=== PATIENT | female | born 1965 | race Caucasian/White ===

== ENCOUNTER 2016-10-31 18:00 | Emergency (ER) | payer SELFPAY ==
[~2016-10-31] VITALS: Ht 180.3 cm; Wt 138.4 kg
[~2016-10-31 18:00] MED LIST: BENZ100 PO; DOXY100T PO
[2016-10-31 18:28] VITALS: BP 152/67; PULSE 93; RESP 18; TEMP 99.4; O2SAT 98
--- NOTE | 2016-10-31 19:27 | RADRPT ---
EXAM DATE/TIME: 10/31/2016 19:08 [facility] COMPARISON: No previous studies available for comparison. INDICATIONS : Right knee pain; fell last night. MEDICAL HISTORY : None. SURGICAL HISTORY : None. ENCOUNTER: Initial ACUITY: 1 day PAIN SCORE: 8/10 LOCATION: Right knee FINDINGS: Mild osteoarthritis is noted involving the patellofemoral and femoral tibial joints. There is a smal l suprapatellar knee joint effusion. There is no acute fracture or dislocation. CONCLUSION: 1. Mild osteoarthritis involving the patellofemoral and femoral tibial joints. 2. Small suprapatellar knee joint effusion. 3. No acute fracture or dislocation. Al Multani MD on October 31, 2016 at 19:22 Board Certified Radiologist. This report was verified electronically.
--- NOTE | 2016-10-31 22:06 | PD ---
HPI Chief Complaint: Injury Time Seen by Provider: 21:52 Travel History International Travel<30 days: No Contact w/Intl Traveler<30days: No Traveled to known affect area: No History of Present Illness HPI Patient comes in complaining of right knee pain that occurred around 2:00 this morning when she went outside during the [place] to close a door. Patient states that she stepped into a hole that she did not seek causing her to twist her right knee. Patient states she's been taking naproxen and elevating with minimal to no relief of her symptoms. Pain is worse with walking. Pain is aching throbbing like in nature anterior surface of her right knee that radiates posteriorly. Patient states she is occasionally feels like it's going to lock up on her. PFSH Past Medical History Cardiovascular Problems: No Diabetes: No Diminished Hearing: No Gastrointestinal Disorders: Yes GERD: Yes Genitourinary: No Musculoskeletal: No Neurologic: No Reproductive: No Respiratory: No Immunizations Current: Yes Migraines: Yes Ulcer: Yes ?: Not LMP: 6 YEARS AGO Menopausal: Yes : 1 Para: 1 Past Surgical History Abdominal Surgery: Yes Cholecystectomy: Yes (1997) Tonsillectomy: Yes Other Surgery: Yes (GALLBLADDER REMOVED) Social History Alcohol Use: No Tobacco Use: Yes (02/23 ppd, STATES QUIT 1 WEEK AGO) Substance Use: Yes Allergies-Medications (Allergen,Severity, Reaction): Coded Allergies: Sulfa (Sulfonamide Antibiotics) (Unverified Allergy, Severe, Anaphylaxis, 10/31/16) diclofenac (Unverified Allergy, Severe, ITCHING, 10/31/16) diflunisal (Unverified Allergy, Severe, ITCHING, 10/31/16) misoprostol (Unverified Allergy, Severe, ITCHING, 10/31/16) penicillin G (Unverified Allergy, Severe, HIVES/ITCHING, 10/31/16) penicillin V (Unverified Allergy, Severe, ITCHING, 10/31/16) propoxyphene (Unverified Allergy, Severe, PURITIS, 10/31/16) sulfamethoxazole (Unverified Allergy, Severe, ITCHING, HIVES, 10/31/16) trimethoprim (Unverified Allergy, Severe, ITCHING, HIVES, 10/31/16) Reported Meds & Prescriptions Reported Meds & Active Scripts Active Reported Levothyroxine (Levothyroxine Sodium) 125 Mcg Tab 125 Mcg PO DAILY Review of Systems Except as stated in HPI: all other systems reviewed are Neg Physical Exam Narrative GENERAL: Well-developed, overly nourished, in no acute distress, and non-ill appearing. SKIN: Focused skin assessment warm and dry. HEAD: Atraumatic. Normocephalic. EYES: Pupils equal and round. EOMI. No scleral icterus. No injection or drainage. ENT: No nasal bleeding or discharge. Mucous membranes pink and moist. NECK: Trachea midline. Supple. No nuclear rigidity. CARDIOVASCULAR: Dorsal pulses 2+, intact, equal bilaterally. Capillary refill less than 2 seconds. RESPIRATORY: No accessory muscle use. No respiratory distress. MUSCULOSKELETAL: No obvious deformities. No clubbing. No cyanosis. No edema. Full range of motion. Knee: Negative patellar apprehension, varus and valgus maneuvers, anterior draw test, and Ovidio test. Pulses equal BL distal to injury. Capillary refill less than 2 seconds distal to injury and equal BL. FROM distal to injury and equal BL. Strength distal to injury equal BL. NV intact distal to injury. Dorsal pulses equal BL. Sensation equal BL 1st web space. Patient worsens palpation over anterior lateral aspect of the right knee. There is no crepitus. NEUROLOGICAL: Awake and alert. No obvious cranial nerve deficits. Motor grossly within normal limits. Normal speech. PSYCHIATRIC: Appropriate mood and affect; insight and judgment normal. Data Data Last Documented VS Vital Signs Date Time Temp Pulse Resp B/P (MAP) Pulse Ox O2 Delivery O2 Flow Rate FiO2 10/31/16 22:10 Room Air 10/31/16 18:28 99.4 93 18 152/67 (95) 98 Orders Orders Knee, Complete (4vws) (10/31/16 ) Splint Or Brace Apply/Monitor (10/31/16 22:00) [facility] Medical Decision Making Medical Screen Exam Complete: Yes Emergency Medical Condition: Yes Interpretation(s) Right knee x-ray read by the radiologist shows: 1. Mild osteoarthritis involving the patellofemoral and femoral tibial joints. 2. Small suprapatellar knee joint effusion. 3. No acute fracture or dislocation. Differential Diagnosis Fracture, sprain, contusion, other Narrative Course There is no clinical evidence to suspect bony injury by exam. Radiographic examination revealed no fracture seen at this time. No obvious ligamental injury or obvious internal derangement is noted at this time. The anterior, posterior, lateral and medial collateral ligaments are intact and symmetrical. The distal extremity appears neurovascularly intact, without evidence of neurovascular injury nor compartment syndrome. Tendon exam also was intact. The effected limb was immobilized. The patient was discharged on pain medication along with sprain and splint care instructions and given warnings for vascular compromise. The patient is to follow up with Orthopedics. The patient agrees with plan. Patient in no obvious distress upon re-evaluation. All pertinent Radiology result(s) discussed with patient. Patient did not want any additional pain medications at this time and she says she has naproxen at home. Any questions/ concerns in reference to patient diagnosis/condition discussed and clarified prior to patient's discharge. Reinforced sheer importance of close follow up with patient's primary physician or primary care clinic and/or orthopedics. Instructed patient to return to ED immediately, if symptoms return/worsen. Pt showed understanding of above instructions. Further instructions and recommendations were detailed in discharge paperwork. Pt ambulated without difficulty out of ED at discharge with knee immobilizer. Diagnosis Primary Impression: Sprain of unspecified site of right knee, initial encounter Referrals: Ty Mendez MD Patient Instructions: Crutch Instructions (ED), General Instructions, Knee Immobilizer (DC), Knee Sprain (DC) Additional Instructions: Follow-up with your primary care physician and/or orthopedics this week for reevaluation. Apply ice to affected area 20 minutes per hour as needed for pain. Use [id number] Tylenol and/or ibuprofen as needed for pain control. Follow instructions on the packaging. Wear knee immobilizer for support and comfort until reevaluated by an orthopedic or primary care physician. Return to the emergency department if symptoms get worse. Disposition: 01 DISCHARGE HOME Condition: Stable Ricki Bahena Oct 31, 2016 22:06
[2016-10-31] MEDS ORDERED: LEVO125T4 PO (22:22)
== END 2016-10-31 22:29 | disposition home or self-care (01) ==
LOC: PHED 18:00 → PHEFT 22:29
DX: S83.91XA Sprain of unspecified site of right knee, initial encounter (principal); X58.XXXA Exposure to other specified factors, initial encounter
CPT/HCPCS: 73564; 99283; E0113; L1830

== ENCOUNTER 2016-12-10 10:57 | Emergency (ER) | payer SELFPAY ==
[~2016-12-10] VITALS: Ht 180.3 cm; Wt 138.0 kg
[~2016-12-10 10:57] MED LIST changes: -BENZ100 PO; -DOXY100T PO; +LEVO125T4 PO
[2016-12-10 10:59] VITALS: BP 158/80; PULSE 89; RESP 16; TEMP 98.5; O2SAT 98
--- NOTE | 2016-12-10 12:06 | PD ---
HPI Chief Complaint: Fall Time Seen by Provider: 12:06 Travel History International Travel<30 days: No Contact w/Intl Traveler<30days: No Traveled to known affect area: No History of Present Illness HPI 51-year-old female presents to ED for evaluation 3 day history of 6/10 mid back pain. Onset after the patient fell while walking home from work. Denies hitting her head or LOC. Described as constant. Worsened by bending over. Occasionally radiating down the left leg. Patient denies numbness, tingling, weakness, limitations to range of motion of the extremities. She denies dysuria , hematuria, vaginal discharge. She treated at home with Aleve with only mild improvement of symptoms. She endorses history of "chronic problems" with her back but no formal diagnoses. Patient does not currently have a primary care provider. PFSH Past Medical History Cardiovascular Problems: No Diabetes: No Diminished Hearing: No Gastrointestinal Disorders: Yes GERD: Yes Genitourinary: No Musculoskeletal: No Neurologic: No Reproductive: No Respiratory: No Immunizations Current: Yes Migraines: Yes Thyroid Disease: Yes Ulcer: Yes Tetanus Vaccination: < 5 Years Influenza Vaccination: No ?: Not Menopausal: Yes : 1 Para: 1 Past Surgical History Abdominal Surgery: Yes Cholecystectomy: Yes (1997) Tonsillectomy: Yes Other Surgery: Yes (GALLBLADDER REMOVED) Social History Alcohol Use: No Tobacco Use: Yes (OCCASIONAL) Substance Use: No Allergies-Medications (Allergen,Severity, Reaction): Coded Allergies: Sulfa (Sulfonamide Antibiotics) (Verified Allergy, Severe, Anaphylaxis, ) diclofenac (Verified Allergy, Severe, ITCHING, 12/10/16) diflunisal (Verified Allergy, Severe, ITCHING, 12/10/16) misoprostol (Verified Allergy, Severe, ITCHING, 12/10/16) penicillin G (Verified Allergy, Severe, HIVES/ITCHING, 12/10/16) penicillin V (Verified Allergy, Severe, ITCHING, 12/10/16) propoxyphene (Verified Allergy, Severe, PURITIS, 12/10/16) sulfamethoxazole (Verified Allergy, Severe, ITCHING, HIVES, 12/10/16) trimethoprim (Verified Allergy, Severe, ITCHING, HIVES, 12/10/16) Reported Meds & Prescriptions Reported Meds & Active Scripts Active Flexeril (Cyclobenzaprine HCl) 10 Mg Tab 10 Mg PO TID Ibuprofen 800 Mg Tab 800 Mg PO Q8H Reported Levothyroxine (Levothyroxine Sodium) 125 Mcg Tab 125 Mcg PO DAILY Review of Systems Except as stated in HPI: all other systems reviewed are Neg Physical Exam Narrative GENERAL: Well-nourished, well-developed pleasant, obese white female in no acute distress. SKIN: Focused skin assessment warm/dry. HEAD: Normocephalic. Atraumatic. EYES: No scleral icterus. No injection or drainage. NECK: Supple, trachea midline. No JVD or lymphadenopathy. CARDIOVASCULAR: Regular rate and rhythm without murmurs, gallops, or rubs. RESPIRATORY: Breath sounds clear and equal bilaterally. No accessory muscle use. GASTROINTESTINAL: Abdomen soft, non-tender, nondistended. No suprapubic tenderness. Active bowel sounds. MUSCULOSKELETAL: No cyanosis, or edema. 2+ DP pulses bilaterally. Straight leg raise positive on the left. 5/5 strength of dorsal flexion, plantar flexion , hip and knee flexion bilaterally. Sensation intact to light touch distally. BACK: Tender in the midthoracic spine and the paraspinal musculature of the same area. No obvious deformity. No CVA tenderness. Data Data Last Documented VS Vital Signs Date Time Temp Pulse Resp B/P (MAP) Pulse Ox O2 Delivery O2 Flow Rate FiO2 12/10/16 13:49 12/10/16 10:59 98.5 89 16 98 Room Air Orders Orders Urinalysis - C+S If Indicated (12/10/16 11:24) Spine, Thoracic-Ap/Lat/Sw(3vw) (12/10/16 12:04) Ketorolac Inj (Toradol Inj) (12/10/16 12:15) Orphenadrine Inj (Norflex Inj) (12/10/16 12:15) Acetamin-Hydrocod 325-5 Mg ([place] 5-325 (12/10/16 12:15) Ed Discharge Order (12/10/16 13:37) Labs Laboratory Tests Test 12/10/16 11:27 Urine Color YELLOW Urine Turbidity CLEAR Urine pH 5.5 Urine Specific [place] 1.033 Urine Protein TRACE mg/dL Urine Glucose (UA) 1000 mg/dL Urine Ketones NEG mg/dL Urine Occult Blood NEG Urine Nitrite NEG Urine Bilirubin NEG Urine Urobilinogen LESS THAN 2.0 MG/DL Urine Leukocyte Esterase TRACE Urine WBC 2 /hpf Urine Squamous Epithelial Cells 1 /hpf Urine Calcium Oxalate Crystals OCC /hpf Urine Hyaline Casts 1 /lpf Urine Mucus FEW /lpf Microscopic Urinalysis Comment CULT NOT INDICATED MDM Medical Decision Making Medical Screen Exam Complete: Yes Emergency Medical Condition: Yes Differential Diagnosis Musculoskeletal pain versus muscle strain versus compression fracture versus UTI versus other Narrative Course 51-year-old female presents to ED for evaluation 3 day history of constant, 6/ 10 mid back pain. Onset after the patient fell while walking home from work. Worsened by bending over. Occasionally radiating down the left leg. Patient denies numbness, tingling, weakness, limited ROM, dysuria, hematuria, vaginal discharge. Vitals reviewed. Physical exam revealed an obese white female in no acute distress. No focal neuro deficits noted. 5/5 strength in the extremities bilaterally. Mild tenderness to the midline of the thoracic spine in the paraspinal musculature of the same area. Patient was administered IM Toradol and Norflex. X-rays of the thoracic spine reveal no acute disease per radiology read. This is musculoskeletal pain secondary to fall. On recheck the patient is sleeping. Patient is prescribed a short course of anti- inflammatories and muscle relaxants. She is encouraged to return to normal, gentle activity as tolerated. She is provided with follow-up information for the [facility]. We discussed reasons to return to the ED. The patient is stable and discharged home. Diagnosis Primary Impression: Musculoskeletal back pain Additional Impression: Fall from standing Qualified Codes: W19.XXXA - Unspecified fall, initial encounter Referrals: [facility] Patient Instructions: Back Pain (ED), General Instructions Additional Instructions: Rest, hydrate. Resume normal, gentle activities as tolerated. No strenuous physical activities for the next few days Anti-inflammatories and muscle relaxants as prescribed. Do not drive while taking multiple relaxants as they may cause drowsiness. Applying ice or heat to areas with sore muscles may help to improve your pains. Do not apply ice/ heat for longer than 20 m/h. Follow-up with the [facility] to establish primary care as discussed. Return to the ED for any urgent or emergent medical condition. Med/Other Pt SpecificInfo: Prescription(s) given Scripts Cyclobenzaprine (Flexeril) 10 Mg Tab 10 MG PO TID for Muscle Spasm, #15 TAB 0 Refills Prov: Vickie Abbott DO 12/10/16 Ibuprofen (Ibuprofen) 800 Mg Tab 800 MG PO Q8H, #15 TAB 0 Refills Prov: Vickie Abbott DO 12/10/16 Disposition: 01 DISCHARGE HOME Condition: Stable Meghan Wilson Dec 10, 2016 12:06
[2016-12-10] MEDS ORDERED: KETOROLAC TROMETHAMINE 60 MG/2 ML (IM) VIAL IM ONE (12:15)
[2016-12-10] MEDS ORDERED: ORPHENADRINE INJ 60 MG/2 ML AMP IM ONE (12:15)
[2016-12-10] MEDS ORDERED: ACETAMINOPHEN/HYDROcodone 325 MG/5 MG TAB PO ONE (12:15)
[2016-12-10 12:17] LABS: BILIRUBIN, URINE NEG (NEG); BLOOD, URINE NEG (NEG); CALCIUM OXALATE CRYSTALS,URINE OCC /hpf; GLUCOSE,URINE 1000 mg/dL (NEG); HYALINE CAST, URINE 1 /lpf (RARE); KETONE, URINE NEG (NEG); MUCUS URINE FEW /lpf (OCC); NITRITE,URINE NEG (NEG); PH, URINE 5.5 (5.0-8.5); SQUAMOUS EPITHELIAL CELL URINE 1 /hpf (0-5); URINE COLOR YELLOW (YELLW/STRAW); URINE LEUKOCYTE ESTERASE TRACE (NEG)
--- NOTE | 2016-12-10 13:31 | RADRPT ---
EXAM DATE/TIME: 12/10/2016 12:26 [facility] COMPARISON: No previous studies available for comparison. INDICATIONS : Fell last nite on left side, severe mid thoracic spine pain. MEDICAL HISTORY : None. SURGICAL HISTORY : None. ENCOUNTER: Initial ACUITY: 2 days PAIN SCORE: 9/10 LOCATION: Thoracic spine FINDINGS: There is normal alignment of the thoracic vertebral bodies. Vertebral body height is maintained. Sp urs are seen in the thoracic spine. No evidence of fracture or subluxation. Pedicles are intact at a ll levels. The paravertebral reflections are not thickened. CONCLUSION: No acute disease. Harley Bates MD on December 10, 2016 at 13:29 Board Certified Radiologist. This report was verified electronically.
[2016-12-10] MEDS ORDERED: IBUP800T23 PO (13:36)
[2016-12-10] MEDS ORDERED: CYCL1TAB29 PO (13:36)
== END 2016-12-10 13:58 | disposition home or self-care (01) ==
LOC: NEPD 10:57
DX: M54.6 Pain in thoracic spine (principal); W19.XXXA Unspecified fall, initial encounter; Y93.01 Activity, walking, marching and hiking
CPT/HCPCS: 72072; 81001; 96372; 99284; J1885; J2360

== ENCOUNTER 2017-01-05 12:12 | Emergency (ER) | payer SELFPAY ==
[~2017-01-05] VITALS: Ht 180.3 cm; Wt 140.5 kg
[~2017-01-05 12:12] MED LIST changes: +CYCL10TA PO; +IBUP1TAB7 PO
[2017-01-05 12:13] VITALS: BP 178/110; PULSE 95; RESP 20; TEMP 98.5; O2SAT 99
--- NOTE | 2017-01-05 12:56 | PD ---
HPI . Patient presents with depression. Chief Complaint: Psychiatric Symptoms Time Seen by Provider: 12:46 Travel History International Travel<30 days: No Contact w/Intl Traveler<30days: No Traveled to known affect area: No History of Present Illness HPI I was not able to get much history from this patient. She presents stating that she just can't take it anymore. PFSH Past Medical History Cardiovascular Problems: No Diabetes: No Diminished Hearing: No Gastrointestinal Disorders: Yes GERD: Yes Genitourinary: No Musculoskeletal: No Neurologic: No Reproductive: No Respiratory: No Immunizations Current: Yes Migraines: Yes Thyroid Disease: Yes Ulcer: Yes Tetanus Vaccination: < 5 Years Influenza Vaccination: No ?: Not Menopausal: Yes : 1 Para: 1 Past Surgical History Abdominal Surgery: Yes Cholecystectomy: Yes (1997) Tonsillectomy: Yes Other Surgery: Yes (GALLBLADDER REMOVED) Social History Alcohol Use: No Tobacco Use: Yes (OCCASIONAL) Substance Use: No Allergies-Medications (Allergen,Severity, Reaction): Coded Allergies: Sulfa (Sulfonamide Antibiotics) (Verified Allergy, Severe, Anaphylaxis, ) diclofenac (Verified Allergy, Severe, ITCHING, 01/05/17) diflunisal (Verified Allergy, Severe, ITCHING, 01/05/17) misoprostol (Verified Allergy, Severe, ITCHING, 01/05/17) penicillin G (Verified Allergy, Severe, HIVES/ITCHING, 01/05/17) penicillin V (Verified Allergy, Severe, ITCHING, 01/05/17) propoxyphene (Verified Allergy, Severe, PURITIS, 01/05/17) sulfamethoxazole (Verified Allergy, Severe, ITCHING, HIVES, 01/05/17) trimethoprim (Verified Allergy, Severe, ITCHING, HIVES, 01/05/17) Reported Meds & Prescriptions Reported Meds & Active Scripts Active No Active Prescriptions or Reported Medications Review of Systems Except as stated in HPI: all other systems reviewed are Neg Psychiatric: Positive: Depression Physical Exam Narrative GENERAL: Patient is tearful. Poor eye contact. SKIN: Warm and dry with no rash or lesions. HEAD: Normocephalic/atraumatic. EYES: Pupils are equal. Extraocular movements are intact. NECK: Supple. CARDIOVASCULAR: Regular rate and rhythm. RESPIRATORY: Nonlabored respirations. MUSCULOSKELETAL: Atraumatic. NEUROLOGICAL: Nonfocal. PSYCHIATRIC: Appropriate mood and affect. Data Data Last Documented VS Vital Signs Date Time Temp Pulse Resp B/P (MAP) Pulse Ox O2 Delivery O2 Flow Rate FiO2 01/05/17 12:13 98.5 95 20 178/110 (132) 99 Room Air Orders Orders Complete Blood Count With Diff (01/05/17 12:46) Comprehensive Metabolic Panel (01/05/17 12:46) Psych Screen (01/05/17 12:46) Drug Screen, Random Urine (01/05/17 12:46) Alcohol (Ethanol) (01/05/17 12:46) MDM Medical Decision Making Medical Screen Exam Complete: Yes Emergency Medical Condition: Yes Differential Diagnosis Differential diagnosis of depression includes but is not limited to episodic depression, major depression, bipolar disorder, PTSD Narrative Course This patient presents for depression. I was not really able to get much history from her. We will get a psych screening exam. Diagnosis Primary Impression: Depression Qualified Codes: F32.9 - Major depressive disorder, single episode, unspecified Scripts No Active Prescriptions or Reported Meds Condition: Princess Langston MD Jan 05, 2017 12:56
[2017-01-05 13:37] LABS: AUTOMATED NEUTROPHIL # 5.3 TH/MM3 (1.8-7.7); BASOPHIL # 0.1 TH/MM3 (0-0.2); BASOPHIL % 0.9 % (0.0-2.0); EOSINOPHIL # 0.3 TH/MM3 (0-0.4); EOSINOPHIL % 3.9 % (0.0-4.0); HEMATOCRIT 42.8 % (35.0-46.0); HEMO FLAGS DIFF FINAL; LYMPH % 19.3 % (9.0-44.0); LYMPHOCYTE # 1.4 TH/MM3 (1.0-4.8); MEAN CELL VOLUME 84.8 FL (80.0-100.0); MEAN CORPUSCULAR HEMOGLOBIN 27.7 PG (27.0-34.0); MEAN CORPUSCULAR HGB CONC 32.7 % (32.0-36.0); MONO % 5.6 % (0.0-8.0); NEUT % 70.3 % (16.0-70.0); PLATELET COUNT 188 TH/MM3 (150-450); RED BLOOD COUNT 5.04 MIL/MM3 (4.00-5.30); RED CELL DISTRIBUTION WIDTH 14.8 % (11.6-17.2); WHITE BLOOD COUNT 7.5 TH/MM3 (4.0-11.0)
[2017-01-05 13:52] LABS: ANION GAP 6 MEQ/L (5-15); AST (GOT) 37 U/L (15-37); BICARBONATE 29.5 MEQ/L (21.0-32.0); BLOOD UREA NITROGEN 8 MG/DL (7-18); CHLORIDE 101 MEQ/L (98-107); GLOMERULAR FILTRATION RATE 71 ML/MIN (>89); POTASSIUM 4.2 MEQ/L (3.5-5.1); SODIUM (NA) 136 MEQ/L (136-145)
[2017-01-05 13:53] LABS: ALCOHOL LESS THAN 3 MG/DL (0-5)
[2017-01-05 13:55] LABS: ALKALINE PHOSPHATASE 100 U/L (45-117); ALT (GPT) 50 U/L (10-53); TOTAL BILIRUBIN ADULT 0.6 MG/DL (0.2-1.0)
[2017-01-05 18:00] VITALS: BP 124/73; PULSE 88; RESP 18; TEMP 98.8; O2SAT 98
[2017-01-06 02:17] VITALS: BP 124/72; PULSE 72; RESP 16; O2SAT 98
[2017-01-06 06:23] VITALS: BP 119/75; PULSE 74; RESP 18; TEMP 98.7; O2SAT 98
[2017-01-06 11:12] VITALS: BP 111/71; PULSE 74; RESP 18; TEMP 97.7; O2SAT 98
--- NOTE | 2017-01-06 13:57 | PD ---
History of Present Illness Chief Complaint: Psychiatric Symptoms Time Seen by Provider: 13:30 Travel History International Travel<30 Days: No Contact w/Intl Traveler<30days: No Known affected area: No Legal Status Legal Status: Brito Act Brito Act Signed By: DOMONIQUE Kennedy History of Present Illness: History of Present Illness HPI 51-year-old female with history of depression comes in to the ED initially on a voluntary basis requesting evaluation she states that she has nothing to live for and that if given the chance she will hurt herself. She goes on to state that 2 nights ago she slept with a knife underneath her pillow and that the previous night she slept that the bottle of Benadryl next to her but she did not actually cut herself or ingest the pills. She denies that she has any current stressors in her life stating that she is working that she has a place to live and she doesn't understand why she feels the way she feels. The patient is initially requested to be admitted to the hospital but then becomes angry and begins to demand that she be discharge. While demanding to be discharged she threatens this staff member that if she is discharged she will harm herself. The patient was placed under Brito act as she is unreliable. Electronic medical record is reviewed the patient has an admission in 2010 after an overdose. She has another brief admission in 2013 for suicidality. In terms of psychiatric treatment he states that she last took medications in 2013. That she has been to [facility] numerous time but has not followed through. Patient is seen in [facility]. She is alert and oriented female. Mood is dysphoric. She gets angry very quickly. She denies any hallucinations, delusions, or paranoia. Patient continues to threaten suicidal intent. In terms of substance abuse she denies any use of any substances and her toxicology is negative. PFSH Past Medical History Cardiovascular Problems: No Diabetes: No Diminished Hearing: No Gastrointestinal Disorders: Yes GERD: Yes Genitourinary: No Musculoskeletal: No Neurologic: No Reproductive: No Respiratory: No Immunizations Current: Yes Migraines: Yes Thyroid Disease: Yes Ulcer: Yes Tetanus Vaccination: < 5 Years Influenza Vaccination: No ?: Not Menopausal: Yes : 1 Para: 1 Past Surgical History Abdominal Surgery: Yes Cholecystectomy: Yes (1997) Tonsillectomy: Yes Other Surgery: Yes (GALLBLADDER REMOVED) Psychiatric History Psychiatric History Hx Psychiatric Treatment: Diagnosed with depression in 2006. Voices that Prozac is the only med she recalls helping her with her depression, but she didn't stay on it due to inability to afford doctor's visits. History of Inpatient Treatment: Yes ([facility] 2010 and 2013. Multiple visits to [facility]) Social History Single female originally from [place]. Never . No children. 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 Lives with a roommate and she reports that this is a stable limit living situation. She reports that both her mother her father and her only sister have all . Hx Alcohol Use: No Hx Tobacco Use: Yes (OCCASIONAL) Hx Substance Use: Yes (2 cigarettes/day) Substance Use Type: Nicotine/Cigarettes Other Substances Used: 02/23 PPD-COCAINE Hx of Substance Use Treatment: No Family Psychiatric History Negative Allergies-Medications (Allergen,Severity, Reaction): Coded Allergies: Sulfa (Sulfonamide Antibiotics) (Verified Allergy, Severe, Anaphylaxis, ) diclofenac (Verified Allergy, Severe, ITCHING, 01/05/17) diflunisal (Verified Allergy, Severe, ITCHING, 01/05/17) misoprostol (Verified Allergy, Severe, ITCHING, 01/05/17) penicillin G (Verified Allergy, Severe, HIVES/ITCHING, 01/05/17) penicillin V (Verified Allergy, Severe, ITCHING, 01/05/17) propoxyphene (Verified Allergy, Severe, PURITIS, 01/05/17) sulfamethoxazole (Verified Allergy, Severe, ITCHING, HIVES, 01/05/17) trimethoprim (Verified Allergy, Severe, ITCHING, HIVES, 01/05/17) Reported Meds & Prescriptions Reported Meds & Active Scripts Active No Active Prescriptions or Reported Medications Review of Systems Except as stated in HPI: all other systems reviewed are Neg Mental Status Examination Appearance: Appropriate Consciousness: Alert Orientation: x4 Motor Activity: Normal gait Speech: Unremarkable Language: Adequate Fund of Knowledge: Adequate Attention and Concentration: Adequate Memory: Unremarkable Mood: Angry, Oppositional Affect: Appropriate, Irritable Thought Process & Associations: Intact Thought Content: Appropriate Hallucination Type: None Delusion Type: None Suicidal Ideation: Yes Suicidal Plan: Yes Suicidal Intention: No Homicidal Ideation: No Homicidal Plan: No Homicidal Intention: No Insight: Poor Judgment: Impulsive MDM Medical Decision Making Medical Record Reviewed: Yes Assessment/Plan 51-year-old female with history of depression currently not in treatment who presents on a voluntary basis reporting suicidality. She is placed under a Brito act after she demands to be discharge. Patient threatening to harm herself when she is discharged and at the same time demanding to be released from [facility]. Placed under Brito act. Patient to be placed on [facility] list for disposition.. Place Orders Orders Diet Regular Basic (01/05/17 Dinner) Diet Regular Basic (01/06/17 Breakfast) Results Vital Signs Date Time Temp Pulse Resp B/P (MAP) Pulse Ox O2 Delivery O2 Flow Rate FiO2 01/06/17 11:12 97.7 74 18 111/71 (84) 98 Room Air 01/06/17 06:23 98.7 74 18 119/75 (90) 98 01/06/17 02:17 72 16 124/72 (89) 98 Room Air 01/05/17 18:00 98.8 88 18 124/73 (90) 98 Room Air Diagnosis Primary Impression: Depression Prescriptions No Active Prescriptions or Reported Meds Condition: Stable Problem Qualifiers Primary Impression: Depression Qualified Codes: F32.9 - Major depressive disorder, single episode, unspecified Olamide Renteria Jan 06, 2017 13:57
[2017-01-06 17:32] VITALS: BP 106/56; PULSE 81; RESP 18; TEMP 97.2; O2SAT 100
== END 2017-01-07 01:19 ==
LOC: NEPJ 12:12
DX: F32.9 Major depressive disorder, single episode, unspecified (principal); K21.9 Gastro-esophageal reflux disease without esophagitis; E07.9 Disorder of thyroid, unspecified; F17.210 Nicotine dependence, cigarettes, uncomplicated; Z88.2 Allergy status to sulfonamides; Z88.0 Allergy status to penicillin; Z88.8 Allergy status to other drugs, medicaments and biological substances
CPT/HCPCS: 80053; 80307; 85025; 99283

== ENCOUNTER 2017-07-07 00:20 | Emergency (ER) | payer SELFPAY ==
[2017-07-07 00:40] VITALS: BP 126/85; PULSE 89; RESP 18; TEMP 98.1; O2SAT 98
[2017-07-07] MEDS ORDERED: IBUPROFEN 600 MG TAB PO ONE (01:45)
--- NOTE | 2017-07-07 01:45 | PD ---
HPI Chief Complaint: Injury Time Seen by Provider: 01:15 Travel History International Travel<30 days: No Contact w/Intl Traveler<30days: No Traveled to known affect area: No History of Present Illness HPI 52-year-old female complains of right hip and right thigh pain. Patient states that she slipped and fell this evening. Patient denies loss of consciousness. Patient states that she was trying to get up and hit the back of her head against an object. Patient complained of some burning pain in the back of her head. Patient denies any visual change. Patient denies any neck pain. Patient denies any chest pain or shortness of breath. Patient denies abdominal pain. Patient denies any focal weakness or numbness of the extremity. PFSH Past Medical History Cardiovascular Problems: No Diabetes: No Diminished Hearing: No Gastrointestinal Disorders: Yes GERD: Yes Genitourinary: No Musculoskeletal: No Neurologic: No Reproductive: No Respiratory: No Immunizations Current: Yes Migraines: Yes Thyroid Disease: Yes Ulcer: Yes Influenza Vaccination: No ?: Not Menopausal: Yes : 1 Para: 1 Past Surgical History Abdominal Surgery: Yes Cholecystectomy: Yes (1997) Tonsillectomy: Yes Other Surgery: Yes (GALLBLADDER REMOVED) Social History Alcohol Use: No Tobacco Use: Yes (OCCASIONAL) Substance Use: No Allergies-Medications (Allergen,Severity, Reaction): Coded Allergies: Sulfa (Sulfonamide Antibiotics) (Verified Allergy, Severe, Anaphylaxis, ) diclofenac (Verified Allergy, Severe, ITCHING, 07/07/17) diflunisal (Verified Allergy, Severe, ITCHING, 07/07/17) misoprostol (Verified Allergy, Severe, ITCHING, 07/07/17) penicillin G (Verified Allergy, Severe, HIVES/ITCHING, 07/07/17) penicillin V (Verified Allergy, Severe, ITCHING, 07/07/17) propoxyphene (Verified Allergy, Severe, PURITIS, 07/07/17) sulfamethoxazole (Verified Allergy, Severe, ITCHING, HIVES, 07/07/17) trimethoprim (Verified Allergy, Severe, ITCHING, HIVES, 07/07/17) Reported Meds & Prescriptions Reported Meds & Active Scripts Active No Active Prescriptions or Reported Medications Review of Systems General / Constitutional: No: Fever Eyes: No: Visual changes HENT: No: Headaches Cardiovascular: No: Chest Pain or Discomfort Respiratory: No: Shortness of Breath Gastrointestinal: No: Abdominal Pain Genitourinary: No: Dysuria Musculoskeletal: Positive: Pain Skin: No Rash Neurologic: No: Weakness Psychiatric: No: Depression Endocrine: No: Polydipsia Hematologic/Lymphatic: No: Easy Bruising Physical Exam Narrative GENERAL: Well-nourished, well-developed patient. SKIN: Focused skin assessment warm/dry. HEAD: Normocephalic. Mild tenderness in palpation occipital area of the scalp. No laceration or abrasion noted. No active bleeding. EYES: No scleral icterus. No injection or drainage. Pupils 2 mm equal reactive. NECK: Supple, trachea midline. No JVD or lymphadenopathy. No neck tenderness on palpation. CARDIOVASCULAR: Regular rate and rhythm without murmurs, gallops, or rubs. RESPIRATORY: Breath sounds equal bilaterally. No accessory muscle use. GASTROINTESTINAL: Abdomen soft, non-tender, nondistended. MUSCULOSKELETAL: No cyanosis, or edema. Patient has moderate tenderness in palpation lateral aspect of the right hip joint. Full range of motion the right hip. Patient had mild tenderness palpation proximal right femur. BACK: Nontender without obvious deformity. No CVA tenderness. Data Data Last Documented VS Vital Signs Date Time Temp Pulse Resp B/P (MAP) Pulse Ox O2 Delivery O2 Flow Rate FiO2 07/07/17 00:40 98.1 89 18 126/85 (99) 98 Orders Orders Ibuprofen (Motrin) (07/07/17 01:45) Hip, Uni(Ap&Lat) W Ap Pelvis (07/07/17 01:38) MDM Medical Decision Making Medical Screen Exam Complete: Yes Emergency Medical Condition: Yes Interpretation(s) Last Impressions Hip and Pelvis X-Ray 07/07/17 0138 Signed Impressions: Service Date/Time: Friday, July 07, 2017 01:56 - CONCLUSION: Unremarkable examination of the right hip. Go Renteria Jr., MD Differential Diagnosis Differential diagnoses including contusion, fracture, dislocation. Narrative Course 52-year-old female with right hip and right thigh pain. Status post fall. Patient also injured the back of the head. Neuro exam benign. No need for CT scan of the brain today. Diagnosis Primary Impression: Contusion of right hip Qualified Codes: S70.01XA - Contusion of right hip, initial encounter Additional Impression: Closed head injury Qualified Codes: S09.90XA - Unspecified injury of head, initial encounter Patient Instructions: General Instructions Additional Instructions: Head trauma instructions given. Motrin as needed for pain. Ice pack. Follow- up with orthopedist if persistent problem. Med/Other Pt SpecificInfo: Prescription(s) given Scripts Methocarbamol (Robaxin) 750 Mg Tab 750 MG PO QID for Muscle Spasm, #40 TAB 0 Refills Prov: Olegario Subramanian MD 07/07/17 Ibuprofen (Ibuprofen) 600 Mg Tab 600 MG PO TID for Pain, #30 TAB 0 Refills Prov: Olegario Subramanian MD 07/07/17 Disposition: DISCHARGE HOME Condition: Stable Olegario Subramanian MD July 07, 2017 01:44
--- NOTE | 2017-07-07 02:14 | RADRPT ---
EXAM DATE/TIME: 07/07/2017 01:56 [place] COMPARISON: No previous studies available for comparison. INDICATIONS : Pain due to fall. MEDICAL HISTORY : None. SURGICAL HISTORY : None. ENCOUNTER: Initial ACUITY: 1 day PAIN SCORE: 8/10 LOCATION: Right pelvis, hip FINDINGS: Examination of the right hip was performed with AP Pelvis. The primary and secondary trabecular mariah teodoro of the femoral neck is intact. The hip joint is of normal width without significant sclerosis or bony hypertrophy. The acetabulum is grossly intact. CONCLUSION: Unremarkable examination of the right hip. Go Renteria Jr., MD on July 07, 2017 at 2:12 Board Certified Radiologist. This report was verified electronically.
[2017-07-07] MEDS ORDERED: ROBA750T PO (02:33)
[2017-07-07] MEDS ORDERED: IBUP-232 PO (02:33)
== END 2017-07-07 03:16 | disposition home or self-care (01) ==
LOC: NEPC 00:20
DX: S70.01XA Contusion of right hip, initial encounter (principal); S09.90XA Unspecified injury of head, initial encounter; W01.0XXA Fall on same level from slipping, tripping and stumbling without subsequent striking against object, initial encounter
CPT/HCPCS: 73502; 99283

== ENCOUNTER 2018-04-05 22:20 | Inpatient (IN) ==
[2018-04-05] MEDS ORDERED: Morphine Inj 4 MG/ML Vial IV.PUSH ONE (23:36)
[2018-04-05] MEDS ORDERED: Vancomycin Inj 1,000 MG in Sodium Chlor 0.9% Inj 250 ML IV.SIG ONE (23:36)
[2018-04-05] MEDS ORDERED: Diphtheria/Tetanus/Pertussis Vaccine Inj 0.5 ML Syringe IM ONE (23:41)
--- NOTE | 2018-04-05 23:41 | ED ---
HPI General Chief complaint: Skin/Abscess/Foreign Body Stated complaint: poss bite/hand swelling Time Seen by Provider: 04/05/18 23:28 Source: patient and RN notes reviewed Mode of arrival: ambulatory History of Present Illness HPI narrative: 53yF presenting with left hand/ arm swelling. The patient states that she was working in her yard yesterday and thinks she was bitten by a bug. She noticed a small area of swelling and itching to the dorsum of her left hand and tried to "pop" it last night. Today, she noticed significant swelling to her entire left hand which has since started to travel up her arm. She admits to tactile fevers and chills. No history of MRSA or IVDA. Does not recall when her last tetanus shot was. Right hand dominant, employed as a rn hedis. Related Data Home Medications Medication Instructions Recorded Confirmed metformin 500 mg PO BID 04/05/18 04/05/18 Allergies Allergy/AdvReac Type Severity Reaction Status Date / Time diclofenac Allergy Severe ITCHING Verified 04/05/18 22:46 diflunisal Allergy Severe ITCHING Verified 04/05/18 22:46 misoprostol Allergy Severe ITCHING Verified 04/05/18 22:46 penicillin G Allergy Severe HIVES/ITCHI Verified 04/05/18 22:46 NG penicillin V Allergy Severe ITCHING Verified 04/05/18 22:46 propoxyphene Allergy Severe PURITIS Verified 04/05/18 22:46 Sulfa (Sulfonamide Allergy Severe Anaphylaxis Verified 04/05/18 22:46 Antibiotics) sulfamethoxazole Allergy Severe ITCHING, Verified 04/05/18 22:46 HIVES trimethoprim Allergy Severe ITCHING, Verified 04/05/18 22:46 HIVES Review of Systems ROS: all other systems reviewed are negative [facility] Medical History Medical History Pre-diabetes (Acute) Surgical History Surgical History History of cholecystectomy (Acute) Hx of tonsillectomy (Acute) Social History Social History Substance History: No History of Abuse Second Hand Smoke Exposure: No Smoking Status: Current every day smoker Tobacco Type: Cigarettes How Often Do You Have a Drink Containing Alcohol: Never Recent Travel in [facility] within the Last 8 Weeks: No Recent Out of Country Travel within the Last 8 Weeks: No Immunization History Tetanus Immunization: >5 Years Exam Const Other: Appears uncomfortable HENMT Face and sinus: normal facial exam Eyes General: appearance normal, both eyes and all related structures Resp Effort & Inspection: normal respiratory effort Auscultation: no rhonchi and no wheezes Cardio Rate: tachycardic Rhythm: regular rhythm GI Inspection: non-distended Palpation: soft and nontender Skin Other: Significant swelling, erythema, warmth, and tenderness to entire left hand and distal lower arm with lymphangitic streaking. Central area of fluctuance to dorsum of left hand. Pain on passive extension of digits Neurovascularly intact No crepitus Neuro General: alert and awake Procedures Abscess I/D Abscess 1: Site: upper extremity Side (if applicable): left Anesthetic used: lidocaine 1% and with epi Technique: incised with #11 blade Irrigation: Yes Packing used?: none Complications: pain Course Initial Documented Vital Signs Temperature 100.4 F H 04/05/18 22:46 Pulse Rate 108 H 04/05/18 22:46 Respiratory Rate 18 04/05/18 22:46 Blood Pressure 128/60 04/05/18 22:46 Last Documented Vital Signs Temperature 98.5 F 04/06/18 22:45 Pulse Rate 80 04/06/18 22:45 Respiratory Rate 16 04/06/18 22:45 Blood Pressure 118/71 04/06/18 22:30 Pulse Oximetry 95 04/06/18 22:45 Medical Decision Making [facility] Narrative Medical decision making narrative: Assessment: 53yF presenting with left hand/ arm cellulitis/ abscess Plan: Sepsis workup Pain control X-ray left hand Antibiotics Patient will likely need obs vs admission and hand surgery consult d/w Dr Loomis at 1211AM and patient assessed shortly thereafter. hand abscess with cellulitic change extending to middle forearm. vanco started. SIRS criteria met upon arrival. sepsis workup initiated. there is concern for tendon sheath involvement. Incision/drainage at bedside yielded moderate quantity of purulent discharge. d/w Dr Tafoya for [facility] at 132AM. Medical Screen Exam Complete: Yes Emergency Medical Condition: Yes Differential Diagnosis Differential Diagnosis: Differential diagnosis includes, but is not limited to: cellulitis/ abscess, SIRS, sepsis Lab Data Result diagrams: 04/05/18 23:54 04/05/18 23:54 Lab Results 04/05/18 04/05/18 04/05/18 Range/Units 23:54 23:54 23:54 WBC 9.7 (4.0-11.0) th/mm3 RBC 4.29 (4.00-5.30) mil/mm3 Hgb 12.0 (11.6-15.3) gm/dL Hct 36.5 (35.0-46.0) % MCV 85.1 (80.0-100.0) fL MCH 27.9 (27.0-34.0) pg MCHC 32.8 (32.0-36.0) % RDW 15.9 (11.6-17.2) % Plt Count 204 (150-450) th/mm3 MPV 9.7 (7.0-11.0) fL Neut % (Auto) 79.8 H (16.0-70.0) % Lymph % (Auto) 9.4 (9.0-44.0) % Lamar % (Auto) 9.0 H (0.0-8.0) % Eos % (Auto) 1.1 (0.0-4.0) % Baso % (Auto) 0.7 (0.0-2.0) % Neut # (Auto) 7.7 (1.8-7.7) th/mm3 Lymph # (Auto) 0.9 L (1.0-4.8) th/mm3 Lamar # (Auto) 0.9 (0.0-0.9) th/mm3 Eos # (Auto) 0.1 (0.0-0.4) th/mm3 Baso # (Auto) 0.1 (0.0-0.2) th/mm3 WBC Differential . Differential Comment Auto diff final Sodium 135 L (136-145) meq/L Potassium 4.1 (3.5-5.1) meq/L Chloride 101 (98-107) meq/L Carbon Dioxide 26.7 (21.0-32.0) meq/L Anion Gap 7 (5-15) meq/L BUN 18 (7-18) mg/dL Creatinine 0.95 (0.50-1.00) mg/dL Estimated GFR 62 L (>89) mL/min POC Glucose (68-110) mg/dl Random Glucose 329 H (74-106) mg/dL Lactic Acid 1.9 (0.4-2.0) mmol/L Calcium 8.7 (8.5-10.1) mg/dL Magnesium 1.9 (1.5-2.5) mg/dL Total Bilirubin 0.7 (0.2-1.0) mg/dL AST 26 (15-37) U/L ALT 40 (10-53) U/L Alkaline Phosphatase 108 (45-117) U/L Total Protein 8.2 (6.4-8.2) g/dL Albumin 3.9 (3.4-5.0) g/dL Urine Color (Yellw/Straw) Urine Clarity (Clear) Urine pH (5.0-8.5) Ur Specific [place] (1.002-1.035) Urine Protein (Neg-Trace) mg/dL Urine Glucose (UA) (Negative) mg/dL Urine Ketones (Negative) mg/dL Urine Occult Blood (Negative) Urine Nitrate (Negative) Urine Bilirubin (Negative) Urine Urobilinogen (Less than 2) mg/dL Ur Leukocyte Esterase (Negative) Urine RBC (0-3) /hpf Urine WBC (0-5) /hpf Ur Squamous Epith Cells (0-5) /hpf Urine Bacteria (None) /hpf Urine Mucus (Occasional) /lpf Micro UA Comment Ur Microscopic Review Urine Culture Comments 04/06/18 04/06/18 04/06/18 Range/Units 03:26 07:40 08:30 WBC (4.0-11.0) th/mm3 RBC (4.00-5.30) mil/mm3 Hgb (11.6-15.3) gm/dL Hct (35.0-46.0) % MCV (80.0-100.0) fL MCH (27.0-34.0) pg MCHC (32.0-36.0) % RDW (11.6-17.2) % Plt Count (150-450) th/mm3 MPV (7.0-11.0) fL Neut % (Auto) (16.0-70.0) % Lymph % (Auto) (9.0-44.0) % Lamar % (Auto) (0.0-8.0) % Eos % (Auto) (0.0-4.0) % Baso % (Auto) (0.0-2.0) % Neut # (Auto) (1.8-7.7) th/mm3 Lymph # (Auto) (1.0-4.8) th/mm3 Lamar # (Auto) (0.0-0.9) th/mm3 Eos # (Auto) (0.0-0.4) th/mm3 Baso # (Auto) (0.0-0.2) th/mm3 WBC Differential Differential Comment Sodium (136-145) meq/L Potassium (3.5-5.1) meq/L Chloride (98-107) meq/L Carbon Dioxide (21.0-32.0) meq/L Anion Gap (5-15) meq/L BUN (7-18) mg/dL Creatinine (0.50-1.00) mg/dL Estimated GFR (>89) mL/min POC Glucose 289 H 295 H (68-110) mg/dl Random Glucose (74-106) mg/dL Lactic Acid (0.4-2.0) mmol/L Calcium (8.5-10.1) mg/dL Magnesium (1.5-2.5) mg/dL Total Bilirubin (0.2-1.0) mg/dL AST (15-37) U/L ALT (10-53) U/L Alkaline Phosphatase (45-117) U/L Total Protein (6.4-8.2) g/dL Albumin (3.4-5.0) g/dL Urine Color Yellow (Yellw/Straw) Urine Clarity Hazy H (Clear) Urine pH 5.0 (5.0-8.5) Ur Specific [place] 1.023 (1.002-1.035) Urine Protein Negative (Neg-Trace) mg/dL Urine Glucose (UA) 500 or greater (Negative) mg/dL Urine Ketones Trace H (Negative) mg/dL Urine Occult Blood Small H (Negative) Urine Nitrate Negative (Negative) Urine Bilirubin Negative (Negative) Urine Urobilinogen Less than 2 (Less than 2) mg/dL Ur Leukocyte Esterase Small H (Negative) Urine RBC 3 (0-3) /hpf Urine WBC 18 H (0-5) /hpf Ur Squamous Epith Cells 2 (0-5) /hpf Urine Bacteria Few H (None) /hpf Urine Mucus Few H (Occasional) /lpf Micro UA Comment Culture indicated Ur Microscopic Review Not Reportable Urine Culture Comments Culture indicated 04/06/18 04/06/18 Range/Units 12:13 16:57 WBC (4.0-11.0) th/mm3 RBC (4.00-5.30) mil/mm3 Hgb (11.6-15.3) gm/dL Hct (35.0-46.0) % MCV (80.0-100.0) fL MCH (27.0-34.0) pg MCHC (32.0-36.0) % RDW (11.6-17.2) % Plt Count (150-450) th/mm3 MPV (7.0-11.0) fL Neut % (Auto) (16.0-70.0) % Lymph % (Auto) (9.0-44.0) % Lamar % (Auto) (0.0-8.0) % Eos % (Auto) (0.0-4.0) % Baso % (Auto) (0.0-2.0) % Neut # (Auto) (1.8-7.7) th/mm3 Lymph # (Auto) (1.0-4.8) th/mm3 Lamar # (Auto) (0.0-0.9) th/mm3 Eos # (Auto) (0.0-0.4) th/mm3 Baso # (Auto) (0.0-0.2) th/mm3 WBC Differential Differential Comment Sodium (136-145) meq/L Potassium (3.5-5.1) meq/L Chloride (98-107) meq/L Carbon Dioxide (21.0-32.0) meq/L Anion Gap (5-15) meq/L BUN (7-18) mg/dL Creatinine (0.50-1.00) mg/dL Estimated GFR (>89) mL/min POC Glucose 264 H 210 H (68-110) mg/dl Random Glucose (74-106) mg/dL Lactic Acid (0.4-2.0) mmol/L Calcium (8.5-10.1) mg/dL Magnesium (1.5-2.5) mg/dL Total Bilirubin (0.2-1.0) mg/dL AST (15-37) U/L ALT (10-53) U/L Alkaline Phosphatase (45-117) U/L Total Protein (6.4-8.2) g/dL Albumin (3.4-5.0) g/dL Urine Color (Yellw/Straw) Urine Clarity (Clear) Urine pH (5.0-8.5) Ur Specific [place] (1.002-1.035) Urine Protein (Neg-Trace) mg/dL Urine Glucose (UA) (Negative) mg/dL Urine Ketones (Negative) mg/dL Urine Occult Blood (Negative) Urine Nitrate (Negative) Urine Bilirubin (Negative) Urine Urobilinogen (Less than 2) mg/dL Ur Leukocyte Esterase (Negative) Urine RBC (0-3) /hpf Urine WBC (0-5) /hpf Ur Squamous Epith Cells (0-5) /hpf Urine Bacteria (None) /hpf Urine Mucus (Occasional) /lpf Micro UA Comment Ur Microscopic Review Urine Culture Comments Imaging Data Radiologist's impression: Chest X-Ray 04/06/18 00:01 CONCLUSION: No acute disease Hand X-Ray 04/06/18 00:01 CONCLUSION: No acute bony findings Discharge Plan Discharge Disposition Patient Disposition: ED Admit(ED Internal Use Only) Discharge Order Discharge Orders: ED Use Only Admit Order (Routine); Ordered 04/06/18 Ordered By: Lewis Muñiz Physicians Team ED Provider: Lewis Muñiz Primary Care Provider: CHRISSY, Attending Provider: Marleen Villalpando Other Providers: Carlos Royal Status ED Status: Left Department Discharge Information Discharge Date/Time: 04/06/18 03:00
[2018-04-05] MEDS ORDERED: Sod Chloride 0.9% Inj 1,000 ML IV.SIG SCH (23:45)
[2018-04-06] MEDS ORDERED: Lidocaine 1%/Epinephrine 1:100,000 Inj 20 ML Vial INFILTRATN ONE (00:10)
[2018-04-06 00:13] LABS: Baso # (Auto) 0.1 th/mm3 (0.0-0.2); Baso % (Auto) 0.7 % (0.0-2.0); Eos # (Auto) 0.1 th/mm3 (0.0-0.4); Eos % (Auto) 1.1 % (0.0-4.0); Hematocrit 36.5 % (35.0-46.0); Lymph # (Auto) 0.9 th/mm3 (1.0-4.8); Lymph % (Auto) 9.4 % (9.0-44.0); Mean Corpuscular HGB Conc 32.8 % (32.0-36.0); Mean Corpuscular Hemoglobin 27.9 pg (27.0-34.0); Mean Corpuscular Volume 85.1 fL (80.0-100.0); Mean Platelet Volume 9.7 fL (7.0-11.0); Mono # (Auto) 0.9 th/mm3 (0.0-0.9); Neut # (Auto) 7.7 th/mm3 (1.8-7.7); Neut % (Auto) 79.8 % (16.0-70.0); Platelet Count 204 th/mm3 (150-450); Red Blood Count 4.29 mil/mm3 (4.00-5.30); Red Cell Distribution Width 15.9 % (11.6-17.2); White Blood Count 9.7 th/mm3 (4.0-11.0)
[2018-04-06] MEDS: Sod Chloride 0.9% Inj 1,000 ML IV.SIG SCH ×2 (00:29→11:25)
[2018-04-06 00:40] LABS: Alanine Aminotransferase 40 U/L (10-53); Albumin 3.9 g/dL (3.4-5.0); Anion Gap 7 meq/L (5-15); Aspartate Aminotransferase 26 U/L (15-37); Blood Urea Nitrogen 18 mg/dL (7-18); Calcium 8.7 mg/dL (8.5-10.1); Carbon Dioxide 26.7 meq/L (21.0-32.0); Chloride 101 meq/L (98-107); Glomerular Filtration Rate 62 mL/min (>89); Glucose,Random 329 mg/dL (74-106); Magnesium 1.9 mg/dL (1.5-2.5); Potassium 4.1 meq/L (3.5-5.1); Sodium 135 meq/L (136-145)
[2018-04-06 00:41] LABS: Alkaline Phosphatase 108 U/L (45-117); Total Protein 8.2 g/dL (6.4-8.2)
--- NOTE | 2018-04-06 01:04 | XR ---
EXAM DATE: 04/06/2018 12:49 AM EST AGE/SEX: 53 years / Female INDICATIONS: . Fever. CLINICAL DATA: This is the patient's initial encounter. Patient reports that signs and symptoms have been present for 1 day and indicates a pain score of 0/10. MEDICAL/SURGICAL HISTORY: None. None. COMPARISON: [facility], CHEST SINGLE AP, 07/13/2010. . FINDINGS: PA and lateral views of the chest demonstrate the lungs to be symmetrically aerated without evidence of mass, infiltrate or effusion. The cardiomediastinal contours are unremarkable. Osseous structures are intact. CONCLUSION: No acute disease Electronically signed by: Harley Romeo MD Board Certified Radiologist 04/06/2018 1:02 AM EST
--- NOTE | 2018-04-06 01:10 | XR ---
EXAM DATE: 04/06/2018 12:50 AM EST AGE/SEX: 53 years / Female INDICATIONS: Left posterior hand pain, swelling. Possible insect bite. CLINICAL DATA: This is the patient's initial encounter. Patient reports that signs and symptoms have been present for 1 week and indicates a pain score of 10/10. MEDICAL/SURGICAL HISTORY: None. None. COMPARISON: . 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 Mild arthritic changes elsewhe re. Benign-appearing sclerotic focus in the proximal aspect of the fourth finger proximal phalanx whi ch may be an enchondroma. No evidence of fracture, dislocation or bony destruction. No foreign body. Pronounced soft tissue swelling, mainly dorsal. CONCLUSION: No acute bony findings Electronically signed by: Harley Romeo MD Board Certified Radiologist 04/06/2018 1:08 AM EST
[2018-04-06] MEDS ORDERED: Vancomycin Consult Pharmacy OTHER PRN ×2 (01:49→01:57)
[2018-04-06] MEDS ORDERED: Dextrose 50% in Water 50 ML Vial IV.PUSH PRN (01:50)
[2018-04-06] MEDS ORDERED: Acetaminophen 325 MG Tablet PO PRN (01:50)
[2018-04-06] MEDS ORDERED: Bisacodyl 10 MG Supp RECTAL PRN (01:50)
--- NOTE | 2018-04-06 02:00 | P.HPIM ---
History of Present Illness Primary Care Physician: UNKNOWN 53-year-old female with past medical history significant for diabetes mellitus presents to the emergency department for the evaluation of an abscess on the dorsum of her hand. The patient reports she first started noticing a raised bump on her hand yesterday afternoon. She states that she attempted to dereck the area and was able to express a small amount of pus. The erythema and pain worsened and she is now unable to extend the fingers of her left hand. She denies any fever/chills at home. No chest pain or shortness of breath. No abdominal pain. No nausea/vomiting/diarrhea. No focal neurologic deficits. Inpatient Certification Inpatient Certification: I certify that the inpatient services were ordered in accordance with Medicare regulations governing the order. This includes certification that hospital inpatient services are reasonable and necessary and in the case of services not specified as inpatient-only under 42 CFR 419.22(n), that they are appropriately provided as inpatient services in accordance to with the 2-midnight benchmark under 43 CFR 412.3(e) Review of Systems Review of Systems: all other systems reviewed are negative [facility] Medical History Medical History Pre-diabetes (Acute) Surgical History Surgical History History of cholecystectomy (Acute) Hx of tonsillectomy (Acute) Family History Family History Other Coronary artery disease Social History Social History Substance History: No History of Abuse Smoking Status: Current every day smoker Tobacco Type: Cigarettes How Often Do You Have a Drink Containing Alcohol: Never Recent Travel in [place] within the Last 8 Weeks: No Recent Out of Country Travel within the Last 8 Weeks: No Immunization History Tetanus Immunization: >5 Years Medications and Allergies Allergies Allergy/AdvReac Type Severity Reaction Status Date / Time diclofenac Allergy Severe ITCHING Verified 04/05/18 22:46 diflunisal Allergy Severe ITCHING Verified 04/05/18 22:46 misoprostol Allergy Severe ITCHING Verified 04/05/18 22:46 penicillin G Allergy Severe HIVES/ITCHI Verified 04/05/18 22:46 NG penicillin V Allergy Severe ITCHING Verified 04/05/18 22:46 propoxyphene Allergy Severe PURITIS Verified 04/05/18 22:46 Sulfa (Sulfonamide Allergy Severe Anaphylaxis Verified 04/05/18 22:46 Antibiotics) sulfamethoxazole Allergy Severe ITCHING, Verified 04/05/18 22:46 HIVES trimethoprim Allergy Severe ITCHING, Verified 04/05/18 22:46 HIVES Home Medications Medication Instructions Recorded Confirmed Type metformin 500 mg PO BID 04/05/18 04/05/18 History Active Medications: Active Medications Acetaminophen (Tylenol) 650 mg PO Q4H PRN PRN Reason: Temp > 100.4 Al Hydroxide/Mg Hydroxide (Milk Of Magnesia Liq) 30 ml PO Q12H PRN PRN Reason: Mild Constipation Bisacodyl (Dulcolax Supp) 10 mg RECTAL DAILY PRN PRN Reason: SEVERE CONSITIPATION Dextrose (D50w Vial) 50 ml IV.PUSH UNSCH PRN PRN Reason: PER HYPOGLYCEMIA PROTOCOL Glucagon (Glucagon Inj) 1 mg OTHER PRN PRN PRN Reason: for Hypoglycemia Protocol Sodium Chloride (Ns Inj) 1,000 mls @ 0 mls/hr IV.SIG .Q0M [facility] Last Infusion: 04/06/18 01:54 Dose: Infused Sodium Chloride (Ns Inj) 1,000 mls @ 0 mls/hr IV.SIG .Q0M YONG Sodium Chloride (Ns Inj) 1,000 mls @ 125 mls/hr IV.CONT .Q8H YONG Insulin Aspart (Novolog Insulin Correctional Sugar Inj) 0 unit SQ ACHS AND 3AM YONG; Protocol Lactulose (Lactulose Liq) 30 ml PO DAILY PRN PRN Reason: SEVERE CONSITIPATION Morphine Sulfate (Morphine Inj) 4 mg IV.PUSH Q4H PRN PRN Reason: PAIN SCALE 6 TO 10 Ondansetron HCl (Zofran Inj) 4 mg IV.PUSH Q6H PRN PRN Reason: NAUSEA OR VOMITING Pharmacy Profile Note (Vancomycin Consult Pharmacy) 1 each OTHER UNSCH PRN PRN Reason: Pharmacy to dose Senna/Docusate Sodium (Anali-Colace) 1 tab PO BID YONG Sennosides (Senokot) 17.2 mg PO Q12H PRN PRN Reason: Moderate Constipation Sodium Chloride (Ns Flush) 2 ml IV.FLUSH BID YONG Sodium Chloride (Ns Flush) 2 ml IV.FLUSH PRN PRN PRN Reason: FLUSH AFTER USING IV ACCESS Physical Exam Vital signs: Vital Signs 04/05/18 22:46 04/06/18 00:25 04/06/18 01:02 Temperature 100.4 F H Pulse Rate 108 H 154 H 96 H Respiratory Rate 18 20 18 Blood Pressure 128/60 138/61 138/61 Pulse Oximetry 100 99 Intake & Output 04/05/18 04/05/18 04/06/18 06:59 18:59 06:59 Intake Total 1000 / 1000 Balance 1000 / 1000 Weight 134.263 kg Intake: IV 1000 / 1000 NS Inj 1,000 ML @ Wide Open IV. 1000 / 1000 SIG .Q0M YONG Rx#:[id number] Narrative: Gen.: No acute distress Head: Normocephalic. Atraumatic. EENT: Pupils equal round and reactive to light. Nose without drainage. Airway intact. Throat without injection. Cardiovascular: Regular rate and rhythm. No murmurs, rubs or gallops. Respiratory: Lungs clear to auscultation bilaterally. No wheezes or rhonchi. Abdomen: Soft, nontender, nondistended. No peritoneal signs. Musculoskeletal: Left hand swollen and erythematous with draining area on the dorsum of the left hand. Fingers swollen and in flexion. Patient unable to extend the fingers of her left hand. Erythema and warmth extends up the mid forearm. Skin: No obvious rashes or erythema. Neuro: Sensory and motor grossly intact. Cranial nerves II through XII grossly intact. Results Labs CBC & Chem 7: 04/05/18 23:54 04/05/18 23:54 Imaging Impressions Chest X-Ray 04/06/18 00:01 CONCLUSION: No acute disease Hand X-Ray 04/06/18 00:01 CONCLUSION: No acute bony findings Caprini VTE Risk Assessment Caprini VTE Risk Assessment: No/Low Risk (score <= 1) Caprini Risk Assessment Model: Point Value = 1 Point Value = 2 Point Value = 3 Point Value = 5 Age 41-60 Minor surgery BMI > 25 kg/m2 Swollen legs Varicose veins or History of unexplained or recurrent spontaneous Oral contraceptives or hormone replacement Sepsis (< 1 month) Serious lung disease, including pneumonia (< 1 month) Abnormal pulmonary function Acute myocardial infarction Congestive heart failure (< 1 month) History of inflammatory bowel disease Medical patient at bed rest Age 61-74 Arthroscopic surgery Major open surgery (> 45 min) Laparoscopic surgery (> 45 min) Malignancy Confined to bed (> 72 hours) Immobilizing plaster cast Central venous access Age >= 75 History of VTE Family history of VTE Factor V Leiden Prothrombin [id number] Lupus anticoagulant Anticardiolipin antibodies Elevated serum homocysteine Heparin-induced thrombocytopenia Other congenital or acquired thrombophilia Stroke (< 1 month) Elective arthroplasty Hip, pelvis, or leg fracture Acute spinal cord injury (< 1 month) Prophylaxis Regimen: Total Risk Factor Score Risk Level Prophylaxis Regimen 0-1 Low Early ambulation 2 Moderate Order ONE of the following: *Sequential Compression Device (SCD) *Heparin 5000 units SQ BID 3-4 Higher Order ONE of the following medications: *Heparin 5000 units SQ TID *Enoxaparin/Lovenox 40 mg SQ daily (WT < 150 kg, CrCl > 30 mL/min) *Enoxaparin/Lovenox 30 mg SQ daily (WT < 150 kg, CrCl > 10-29 mL/min) *Enoxaparin/Lovenox 30 mg SQ BID (WT < 150 kg, CrCl > 30 mL/min) AND/OR *Sequential Compression Device (SCD) 5 or more Highest Order ONE of the following medications: *Heparin 5000 units SQ TID (Preferred with Epidurals) *Enoxaparin/Lovenox 40 mg SQ daily (WT < 150 kg, CrCl > 30 mL/min) *Enoxaparin/Lovenox 30 mg SQ daily (WT < 150 kg, CrCl > 10-29 mL/min) *Enoxaparin/Lovenox 30 mg SQ BID (WT < 150 kg, CrCl > 30 mL/min) AND *Sequential Compression Device (SCD) Assessment and Plan Plan Assessment/plan: 1. Left hand/forearm cellulitis with abscess Status post incision and drainage in the emergency department Blood, wound cultures pending Concern for tenosynovitis given patient's inability to extend fingers of the left hand Hand surgery consulted, appreciate assistance Vancomycin 2. Diabetes mellitus Holding home metformin Sliding-scale insulin Monitor blood glucose FEN N.p.o. Electrolytes: Replete as needed NS at 125 cc/hour
[2018-04-06] MEDS ORDERED: Vancomycin Inj 1,000 MG in Sodium Chlor 0.9% Inj 250 ML IV.SIG ONE (03:00)
[2018-04-06] MEDS: Sod Chloride 0.9% Inj 1,000 ML IV.CONT SCH ×2 (03:28→11:27)
[2018-04-06] MEDS: Insulin NovoLOG Aspart Correctional Sugar Inj SQ SCH ×5 (03:48→23:14)
[2018-04-06] MEDS: Morphine Inj 4 MG/ML Vial IV.PUSH PRN ×3 (06:48→14:58)
[2018-04-06 08:17] LABS: Bacteria,Urine Few /hpf; Bilirubin,Urine Negative (Negative); Clarity,Urine Hazy (Clear); Color,Urine Yellow (Yellw/Straw); Glucose,Urine (UA) 500 or Greater mg/dL (Negative); Leukocyte Esterase,Urine Small (Negative); Mucus,Urine Few /lpf (Occasional); Nitrite,Urine Negative (Negative); Specific Gravity,Urine 1.023 (1.002-1.035); Squamous Epithelial Cell,Urine 2 /hpf (0-5)
[2018-04-06] MEDS: Senna/Docusate Sodium 8.6/50 MG Tablet PO SCH ×2 (08:32→23:15)
--- NOTE | 2018-04-06 10:01 | P.PNIM ---
Subjective Interval history: Follow-up visit abscess dorsum of left hand s/p I&D Patient is resting in bed. Left hand covered with gauze. Patient reports intermittent pain and swelling to left hand. Sensation intact, patient able to move fingers. She states she was outside working in her yard yesterday when she noted something on top of her left hand that she thinks may have been a bug bite. Denies fevers or chills. No nausea or vomiting. Physical Exam Vital signs: Vital Signs 04/05/18 22:46 04/06/18 00:25 04/06/18 01:02 Temperature 100.4 F H Pulse Rate 108 H 154 H 96 H Respiratory Rate 18 20 18 Blood Pressure 128/60 138/61 138/61 Pulse Oximetry 100 99 04/06/18 02:46 04/06/18 03:32 04/06/18 06:49 Temperature 97.8 F Pulse Rate 84 90 87 Respiratory Rate 18 16 16 Blood Pressure 134/62 101/64 110/53 L Pulse Oximetry 98 97 97 04/06/18 07:29 Temperature 99.4 F Pulse Rate 84 Respiratory Rate 16 Blood Pressure 92/54 L Pulse Oximetry 96 Intake & Output 04/05/18 04/06/18 04/06/18 18:59 06:59 18:59 Intake Total 1500 / 1500 Balance 1500 / 1500 Weight 134.263 kg Intake: IV 1500 / 1500 NS Inj 1,000 ML @ Wide Open IV. 1000 / 1000 SIG .Q0M [facility] Rx#:[id number] Vancomycin Inj 1,000 MG In NS 500 / 500 Inj 250 ML @ 250 mls/hr IV.SIG ONCE ONE Rx#:[id number] Oral 0 / 0 Other: Date of Last Bowel Movement 04/05/18 Weight On Admission 134.263 kg Narrative: Gen.: well developed, well nourished, no acute distress Head: Normocephalic. Atraumatic. EENT: Pupils equal round and reactive to light. Nose without drainage. Airway intact. Throat without injection. Cardiovascular: Regular rate and rhythm. No murmurs, rubs or gallops. Respiratory: Lungs clear to auscultation bilaterally. No wheezes or rhonchi. Abdomen: Soft, nontender, nondistended. No peritoneal signs. Musculoskeletal: Left hand swollen and erythematous with draining area on the dorsum of the left hand. Fingers swollen, able to extend the fingers of her left hand. Erythema and warmth extends up the mid forearm. Skin: No obvious rashes or erythema. Neuro: Sensory and motor grossly intact. Cranial nerves II through XII grossly intact. Results Labs CBC & Chem 7: 04/05/18 23:54 04/05/18 23:54 Imaging Imaging: Impressions Chest X-Ray 04/06/18 00:01 CONCLUSION: No acute disease Hand X-Ray 04/06/18 00:01 CONCLUSION: No acute bony findings Assessment and Plan Plan 53-year-old female with past medical history significant for diabetes mellitus presents to the emergency department for the evaluation of an abscess on the dorsum of her hand. Left hand/forearm cellulitis with abscess -status post incision and drainage in the emergency department -Blood, wound cultures pending -Concern for tenosynovitis given patient's inability to extend fingers of the left hand -Hand surgery consulted, appreciate assistance -continue IV Vancomycin Diabetes mellitus -hold home metformin -accucheck ac/hs with SSI -ADA diet MDM: self Code: Full GI ppx: not indicated DVT ppx: Heparin Subcu Discussed with: RN, patient, supervising MD Dispo: home once medically optimized and cleared from hand surgery standpoint. Progress Note: Quality VTE Deep Vein Thrombosis/Pulmonary Embolism Present on Admission: No
[2018-04-06] MEDS: Vancomycin Inj 2,500 MG in Sodium Chlor 0.9% Inj 500 ML IV.SIG SCH (17:04)
[2018-04-06] MEDS ORDERED: Ketamine Inj 50 MG/5 ML Syringe IV.PUSH ONE (19:25)
--- NOTE | 2018-04-06 19:27 | MB ---
cc: Carlos Royal MD DATE: 04/06/2018 REASON FOR CONSULTATION: Left hand infection. HISTORY OF PRESENT ILLNESS: The patient is a 53-year-old, left-hand dominant female with history of diabetes, presenting with complaints of pain and swelling involving the left hand for 2 days' duration. The patient states she thinks she might have been bitten by a bug and she noticed a blister, kind of lesion, over the dorsal aspect of the left hand. The patient used a needle to puncture, multiple punctures, to drain the cyst following which she noticed worsening pain and swelling of the left hand and forearm. The patient was seen in the ER. She had an incision and drainage by the ED. Hand surgery was consulted for persistent pain and swelling involving the left hand and wrist. The patient denies any fever. Denies any history of MRSA. PHYSICAL EXAMINATION: Left upper extremity reveals a dressing over the dorsal aspect of the hand. Examination after removal of dressing reveals a transverse incision over the dorsal aspect of the hand. There is sanguineous drainage noted from the region. Diffuse swelling of the hand and fingers noted. The swelling extends to the forearm region. She has diffuse tenderness over the dorsal aspect of the hand, the dorsal aspect of the wrist, corresponding to the extensor tendons. She has tenderness along the extensor tendons over the dorsal aspect of the hand. Range of motion of the fingers are limited and painful. She has intact sensation distally. She has intact distal circulation. The patient also has lymphangitic streaking along the dorsal aspect of the forearm. LABORATORY DATA: Her lab work was reviewed. She has white count of 9.7, neutrophil shift of 79%. The patient had x-rays of the right hand which shows soft tissue swelling. No radiopaque foreign body. ASSESSMENT: A 53-year-old female with infection of the left hand likely extensor tenosynovitis. PLAN: The patient would benefit from exploration and drainage, possible drainage of the extensor tendon sheath. We will keep the patient n.p.o. and take her emergently for incision and drainage of left hand and wrist. She will continue with IV antibiotics. We will keep the limb elevated. Carlos Royal MD Eda , 05:28 PM , 05:38 PM
[2018-04-06] MEDS ORDERED: Glycopyrrolate Inj 1 MG/5 ML Syringe IV.PUSH ONE (19:55)
[2018-04-06] MEDS ORDERED: Lidocaine PF 1% Inj 5 ML Syringe INFILTRATN ONE (19:55)
[2018-04-06] MEDS ORDERED: Ketorolac Inj 30 MG/ML (IVP) Vial IV.PUSH ONE (19:55)
[2018-04-06] MEDS ORDERED: Phenylephrine/NS 1000 MCG/10ML Syringe IV.PUSH ONE (19:55)
[2018-04-06] MEDS ORDERED: Neomycin/Polymyxin G.U. Irrigant 1 ML Ampul ONE ×2 (19:59→20:57)
[2018-04-06] MEDS ORDERED: Clindamycin Inj 600 MG/4 ML Vial ONE (20:16)
[2018-04-06] MEDS ORDERED: Heparin - SQ 10,000 UNITS/ML Vial SQ SCH (21:00)
--- NOTE | 2018-04-06 21:37 | P.OP ---
- Preoperative Diagnosis (1) Abscess of left hand - Postoperative Diagnosis (1) Extensor tenosynovitis of left wrist (2) Abscess of left hand Date of procedure: 04/06/18 Procedure: incision, drainage and debridement left hand abscess debridement and extensor tenosynovectomy left hand/wrist Anesthesia: GETA Surgeon: Carlos Royal MD Estimated blood loss (mL): 10 Tourniquet time (min): 49 Pathology: other (swab for c/s) Operation and Findings: abscess cavity dorsal aspect of the left hand extensive inflammatory phlegmon extensor tendons left hand extensor tenosynovitis fourth compartment left wrist
[2018-04-06] MEDS ORDERED: fentaNYL Citrate Inj 100 MCG/2 ML Ampul ONE (21:56)
--- NOTE | 2018-04-06 22:08 | MP ---
cc: Carlos Royal MD DATE OF OPERATION: 04/06/2018 PREOPERATIVE DIAGNOSIS: Abscess, left hand. POSTOPERATIVE DIAGNOSIS: Abscess, left hand with extensor tenosynovitis, left hand and wrist. PROCEDURE PERFORMED: Incision, drainage, debridement, left hand abscess, debridement and extensor tenosynovectomy fourth compartment, left hand and wrist. SURGEON: Carlos Royal MD ANESTHESIA: General. ESTIMATED BLOOD LOSS: 10 mL. TOURNIQUET TIME: 49 minutes at 250 mmHg. COMPLICATIONS: None. SPECIMENS: Sent for culture and sensitivity. DISPOSITION: To PACU, stable. INDICATIONS FOR PROCEDURE: This is a 53-year-old female with history of diabetes and a history of IV drug abuse, presented with complaints of pain and swelling involving the left hand and wrist for the past 2 days. The patient used a needle to puncture the abscess over the dorsal aspect of the hand that resulted in worsening of symptoms. The patient had an incision and drainage by the ED last night. She continued to worsen with pain and swelling. On examination, she had a transverse incision over the dorsal aspect of the hand. Diffuse swelling of the hand with tenderness noted over the dorsal aspect of the hand and wrist. Range of motion of the wrist and fingers were limited and painful. Clinically, she was diagnosed with abscess of the left hand with a possible extensor tenosynovitis. She was consented for incision and drainage of left hand and wrist. The patient was explained the risks and benefits of the procedure. DESCRIPTION OF PROCEDURE: The patient was brought to the operating room under general anesthesia. The left upper extremity was sterilely prepped and draped. After limb elevation, tourniquet was inflated to 250 mmHg. Attention was initially directed to the dorsal aspect of the hand. The transverse incision done by the ED was extended both proximally and distally and after exploration, there was evidence of a pocket of pus over the dorsal aspect of the hand. On further exploration, there were thrombosed veins on the dorsal aspect of the hand. There was also evidence of inflammatory tissue over the extensor tendon. A combination of sharp and blunt dissection was carried out to debride the extensor tendons of the inflammatory tissue over the dorsal aspect of the hand. Cultures were obtained for culture and sensitivity. The incision was then extended proximally over the dorsal aspect of the wrist. There was evidence of extensor tenosynovitis involving the fourth compartment of the wrist. The decision was made to proceed with extensor tenosynovectomy for the extensor compartment. Incision was then extended proximally over the dorsal aspect of the wrist proximal to the extensor retinaculum. The extensor tenosynovectomy was carried out. Part of the extensor retinaculum was kept intact to prevent bowstringing of the tendons. Thorough wash was given using normal saline mixed with irrigant. About 2 liters of solution was used. The thrombosed veins were excised and tied with 3-0 silk sutures. After ensuring there were no other pockets of pus or inflammatory tissue, packing of the wounds was carried out with 1/4-inch iodoform packing material both over the dorsal aspect of the hand and over the dorsal aspect of the wrist and underneath and in the fourth extensor compartment. Skin flaps were then loosely approximated using 4-0 nylon in horizontal mattress interrupted fashion. Prior to closure, the tourniquet was inflated for 49 minutes. Bleeding points were cauterized with bipolar cautery. She had good distal circulation at the end of the procedure. Bulky hand dressing was applied, which was held in place by Sof-Rol and bias hand wrap. A volar splint was then applied, keeping the wrist in slight extension. The patient was recovered and sent to recovery room in stable condition. The plan will be to continue with IV antibiotics, continue with limb elevation. Will change the packing tomorrow. Carlos Royal MD SE/randy , 09:41 PM , 09:50 PM
[2018-04-06] MEDS ORDERED: *morphine SULFATE 4 MG/ML PERIprocedure ONLY ONE (22:18)
[2018-04-07] MEDS: Sod Chloride 0.9% Inj 1,000 ML IV.CONT SCH ×5 (00:02→18:23)
[2018-04-07] MEDS: Insulin NovoLOG Aspart Correctional Sugar Inj SQ SCH ×5 (02:45→21:17)
[2018-04-07] MEDS: Morphine Inj 4 MG/ML Vial IV.PUSH PRN ×5 (04:53→21:22)
[2018-04-07] MEDS: Senna/Docusate Sodium 8.6/50 MG Tablet PO SCH ×2 (08:56→21:18)
[2018-04-07 10:39] LABS: Baso % (Auto) 0.4 % (0.0-2.0); Eos % (Auto) 0.1 % (0.0-4.0); Hematocrit 31.5 % (35.0-46.0); Hemoglobin 10.3 gm/dL (11.6-15.3); Lymph # (Auto) 0.6 th/mm3 (1.0-4.8); Lymph % (Auto) 9.3 % (9.0-44.0); Mean Corpuscular HGB Conc 32.8 % (32.0-36.0); Mean Corpuscular Hemoglobin 28.6 pg (27.0-34.0); Mean Corpuscular Volume 87.2 fL (80.0-100.0); Mean Platelet Volume 10.2 fL (7.0-11.0); Mono # (Auto) 0.6 th/mm3 (0.0-0.9); Mono % (Auto) 9.7 % (0.0-8.0); Neut # (Auto) 4.9 th/mm3 (1.8-7.7); Neut % (Auto) 80.5 % (16.0-70.0); Platelet Count 146 th/mm3 (150-450); Red Blood Count 3.62 mil/mm3 (4.00-5.30); White Blood Count 6.1 th/mm3 (4.0-11.0)
[2018-04-07] MEDS: Vancomycin Inj 2,500 MG in Sodium Chlor 0.9% Inj 500 ML IV.SIG SCH (11:16)
[2018-04-07 11:25] LABS: Calcium 7.6 mg/dL (8.5-10.1); Carbon Dioxide 23.2 meq/L (21.0-32.0); Potassium 4.3 meq/L (3.5-5.1)
[2018-04-07] MEDS: Insulin Detemir Inj 1,000 UNIT/10 ML Vial SQ SCH ×2 (12:27→17:56)
--- NOTE | 2018-04-07 15:21 | P.PNOP ---
Subjective Interval history: feeling better but still with dorsal left hand and wrist pain Physical Exam Vital signs: Vital Signs 04/06/18 15:50 04/06/18 19:30 04/06/18 21:45 Temperature 98 F 99.1 F 97.8 F Pulse Rate 86 86 88 Respiratory Rate 16 16 16 Blood Pressure 110/60 121/59 L 123/70 Pulse Oximetry 98 100 04/06/18 22:00 04/06/18 22:15 04/06/18 22:30 Temperature Pulse Rate 79 81 79 Respiratory Rate 18 17 18 Blood Pressure 123/73 117/65 118/71 Pulse Oximetry 92 L 93 L 95 04/06/18 22:45 04/07/18 00:00 04/07/18 04:00 Temperature 98.5 F 98.1 F 97.5 F L Pulse Rate 80 84 83 Respiratory Rate 16 18 Blood Pressure 121/60 128/60 Pulse Oximetry 95 94 L 95 04/07/18 08:25 04/07/18 11:50 Temperature 97.9 F 98.4 F Pulse Rate 73 76 Respiratory Rate 17 17 Blood Pressure 115/60 105/58 L Pulse Oximetry 95 96 Intake & Output 04/06/18 04/07/18 04/07/18 18:59 06:59 18:59 Intake Total 0 / 0 4182 / 4182 243 / 243 Output Total Balance 0 / 0 4173 / 4173 243 / 243 Weight 134.263 kg Intake: IV 0 / 0 3282 / 3282 243 / 243 NS Inj 1,000 ML @ 125 mls/hr IV 0 / 0 1757 / 1757 243 / 243 .CONT .Q8H [facility] Rx#:[id number] NS Inj 1,000 ML @ Wide Open IV. 1000 / 1000 SIG .Q0M [facility]ONG Rx#:[id number] Vancomycin Inj 2,500 MG In NS 525 / 525 Inj 500 ML @ 250 mls/hr IV.SIG Q18H [facility]ONG Rx#:[id number] Anesthesia Amount 900 / 900 Output: Estimated Blood Loss Other: # Voids 2 3 Date of Last Bowel Movement 04/07/18 - Detailed Upper Extremity Exam Wrist: Left swelling (left hand swollen and no erythema; moderate edema and minimal motion of fingers, but she states improved. Serosanguinous drainage around packing. Keeping elevated) Results - Labs CBC & Chem 7: 04/07/18 07:25 04/07/18 07:25 Laboratory Results - last 24 hr 04/06/18 04/07/18 04/07/18 16:57 02:27 03:01 WBC RBC Hgb Hct MCV MCH MCHC RDW Plt Count MPV Neut % (Auto) Lymph % (Auto) [place] % (Auto) Eos % (Auto) Baso % (Auto) Neut # (Auto) Lymph # (Auto) [place] # (Auto) Eos # (Auto) Baso # (Auto) WBC Differential Differential Comment Sodium Potassium Chloride Carbon Dioxide Anion Gap BUN Creatinine Estimated GFR POC Glucose 210 H 515 H* 484 H* Random Glucose Calcium 04/07/18 04/07/18 04/07/18 04:10 07:25 07:25 WBC 6.1 RBC 3.62 L Hgb 10.3 L Hct 31.5 L MCV 87.2 MCH 28.6 MCHC 32.8 RDW 16.0 Plt Count 146 L MPV 10.2 Neut % (Auto) 80.5 H Lymph % (Auto) 9.3 [place] % (Auto) 9.7 H Eos % (Auto) 0.1 Baso % (Auto) 0.4 Neut # (Auto) 4.9 Lymph # (Auto) 0.6 L [place] # (Auto) 0.6 Eos # (Auto) 0.0 Baso # (Auto) 0.0 WBC Differential . Differential Comment Auto diff final Sodium 135 L Potassium 4.3 Chloride 104 Carbon Dioxide 23.2 Anion Gap 8 BUN 20 H Creatinine 1.06 H Estimated GFR 55 L POC Glucose 501 H* Random Glucose 454 H* D Calcium 7.6 L D 04/07/18 04/07/18 07:57 12:22 WBC RBC Hgb Hct MCV MCH MCHC RDW Plt Count MPV Neut % (Auto) Lymph % (Auto) [place] % (Auto) Eos % (Auto) Baso % (Auto) Neut # (Auto) Lymph # (Auto) [place] # (Auto) Eos # (Auto) Baso # (Auto) WBC Differential Differential Comment Sodium Potassium Chloride Carbon Dioxide Anion Gap BUN Creatinine Estimated GFR POC Glucose 438 H 399 H Random Glucose Calcium Microbiology 04/06/18 01:50 Abscess - Hand Gram Stain - Final 04/06/18 01:50 Abscess - Hand Wound Culture - Preliminary Heavy growth normal skin marilee at 24 hours 04/06/18 07:40 Clean Catch Urine Urine Culture - Preliminary Immature growth - reincubate 04/05/18 23:54 Blood - Peripheral Aerobic Blood Culture - Preliminary No growth in 1 day 04/05/18 23:54 Blood - Peripheral Anaerobic Blood Culture - Preliminary No growth in 1 day 04/05/18 23:54 Blood - Peripheral Aerobic Blood Culture - Preliminary No growth in 1 day 04/05/18 23:54 Blood - Peripheral Anaerobic Blood Culture - Preliminary No growth in 1 day 04/06/18 20:20 Wound - Hand Fungal Smear - Final No fungal elements seen 04/06/18 20:20 Wound - Hand Gram Stain - Final gram stain with many gram positive cocci Assessment and Plan - Problem List (1) Extensor tenosynovitis of left wrist Code(s): M65.832 - Other synovitis and tenosynovitis, left forearm Status: Acute Plan: wound cleaned with peroxide and packing removed partially from all areas and redressed with sterile 4x4s, ABDs, kandi, soft roll and short arm fiberglass splint on the left hand, wrist Continue IV antibiotics and elevation and Dr. Royal will recheck again on (2) Abscess of left hand Code(s): L02.512 - Cutaneous abscess of left hand Status: Acute
--- NOTE | 2018-04-07 15:45 | P.PNIM ---
Subjective Interval history: 53yo w f w dm admitted for cellulitis and abscess left hand s/ p id pt seen doing well but with sugars over 500, denes sob, no nv, no cp, Physical Exam Vital signs: Vital Signs 04/06/18 15:50 04/06/18 19:30 04/06/18 21:45 Temperature 98 F 99.1 F 97.8 F Pulse Rate 86 86 88 Respiratory Rate 16 16 16 Blood Pressure 110/60 121/59 L 123/70 Pulse Oximetry 98 100 04/06/18 22:00 04/06/18 22:15 04/06/18 22:30 Temperature Pulse Rate 79 81 79 Respiratory Rate 18 17 18 Blood Pressure 123/73 117/65 118/71 Pulse Oximetry 92 L 93 L 95 04/06/18 22:45 04/07/18 00:00 04/07/18 04:00 Temperature 98.5 F 98.1 F 97.5 F L Pulse Rate 80 84 83 Respiratory Rate 16 18 Blood Pressure 121/60 128/60 Pulse Oximetry 95 94 L 95 04/07/18 08:25 04/07/18 11:50 Temperature 97.9 F 98.4 F Pulse Rate 73 76 Respiratory Rate 17 17 Blood Pressure 115/60 105/58 L Pulse Oximetry 95 96 Intake & Output 04/06/18 04/07/18 04/07/18 18:59 06:59 18:59 Intake Total 0 / 0 4182 / 4182 243 / 243 Output Total 9 / 9 Balance 0 / 0 4173 / 4173 243 / 243 Weight 134.263 kg Intake: IV 0 / 0 3282 / 3282 243 / 243 NS Inj 1,000 ML @ 125 mls/hr IV 0 / 0 1757 / 1757 243 / 243 .CONT .Q8H YONG Rx#:[id number] NS Inj 1,000 ML @ Wide Open IV. 1000 / 1000 SIG .Q0M YONG Rx#:[id number] Vancomycin Inj 2,500 MG In NS 525 / 525 Inj 500 ML @ 250 mls/hr IV.SIG Q18H YONG Rx#:[id number] Anesthesia Amount 900 / 900 Output: Estimated Blood Loss Other: # Voids 2 3 Date of Last Bowel Movement 04/07/18 Narrative: wdwn 53yo w f aaox3 nad heart s1s2 reg lungs clear no wrr abd soft nondt pos bs ext left hand bandaged uples intact, Results Labs CBC & Chem 7: 04/07/18 07:25 04/07/18 07:25 Labs: Microbiology 04/06/18 01:50 Abscess - Hand Gram Stain - Final 04/06/18 01:50 Abscess - Hand Wound Culture - Preliminary Heavy growth normal skin marilee at 24 hours 04/06/18 07:40 Clean Catch Urine Urine Culture - Preliminary Immature growth - reincubate 04/05/18 23:54 Blood - Peripheral Aerobic Blood Culture - Preliminary No growth in 1 day 04/05/18 23:54 Blood - Peripheral Anaerobic Blood Culture - Preliminary No growth in 1 day 04/05/18 23:54 Blood - Peripheral Aerobic Blood Culture - Preliminary No growth in 1 day 04/05/18 23:54 Blood - Peripheral Anaerobic Blood Culture - Preliminary No growth in 1 day 04/06/18 20:20 Wound - Hand Fungal Smear - Final No fungal elements seen 04/06/18 20:20 Wound - Hand Gram Stain - Final Assessment and Plan (1) Extensor tenosynovitis of left wrist: Code(s): M65.832 - Other synovitis and tenosynovitis, left forearm Status: Acute (2) Abscess of left hand: Code(s): L02.512 - Cutaneous abscess of left hand Status: Acute Plan CELLULITIS and ABSCESS w EXTENSOR TENOSYNOVITIS s/p i/d extensor tenosynovectomy fourth compartment left hand and wrist - cont iv abx, fu cx, wound care per sx, pain control UNCONTROLLED DM - w significant hyperglycemia - add levemir, resume glucophage, check a1c UTI - poa, fu cx, on abx MORBID OBESITY bmi 41 - diet activity when stable NICOTINE ADDICTION/tobacco abuse- cessation counseling , nicoderm prn wd dvt prophylaxis disposition - home when stable per ortho and when sugars better Progress Note: Quality VTE Deep Vein Thrombosis/Pulmonary Embolism Present on Admission: No
[2018-04-07] MEDS: Heparin - SQ 10,000 UNITS/ML Vial SQ SCH (21:18)
[2018-04-08] MEDS: Morphine Inj 4 MG/ML Vial IV.PUSH PRN ×3 (01:26→09:34)
[2018-04-08] MEDS: Insulin NovoLOG Aspart Correctional Sugar Inj SQ SCH ×5 (03:09→21:05)
[2018-04-08] MEDS: Vancomycin Inj 2,500 MG in Sodium Chlor 0.9% Inj 500 ML IV.SIG SCH (04:39)
[2018-04-08] MEDS: Senna/Docusate Sodium 8.6/50 MG Tablet PO SCH ×2 (09:01→21:06)
[2018-04-08] MEDS: Heparin - SQ 10,000 UNITS/ML Vial SQ SCH ×2 (09:02→21:05)
[2018-04-08] MEDS: Insulin Detemir Inj 1,000 UNIT/10 ML Vial SQ SCH ×2 (09:03→16:53)
[2018-04-08 09:11] LABS: Baso # (Auto) 0.1 th/mm3 (0.0-0.2); Baso % (Auto) 1.2 % (0.0-2.0); Eos # (Auto) 0.2 th/mm3 (0.0-0.4); Eos % (Auto) 3.6 % (0.0-4.0); Hematocrit 29.6 % (35.0-46.0); Hemoglobin 9.8 gm/dL (11.6-15.3); Lymph # (Auto) 1.3 th/mm3 (1.0-4.8); Lymph % (Auto) 21.9 % (9.0-44.0); Mean Corpuscular HGB Conc 33.1 % (32.0-36.0); Mean Corpuscular Hemoglobin 28.1 pg (27.0-34.0); Mean Corpuscular Volume 85.1 fL (80.0-100.0); Mean Platelet Volume 9.7 fL (7.0-11.0); Mono # (Auto) 0.5 th/mm3 (0.0-0.9); Mono % (Auto) 8.2 % (0.0-8.0); Neut # (Auto) 3.8 th/mm3 (1.8-7.7); Neut % (Auto) 65.1 % (16.0-70.0); Platelet Count 168 th/mm3 (150-450); Red Blood Count 3.48 mil/mm3 (4.00-5.30); Red Cell Distribution Width 15.6 % (11.6-17.2); White Blood Count 5.8 th/mm3 (4.0-11.0)
[2018-04-08 09:33] LABS: Calcium 7.6 mg/dL (8.5-10.1); Carbon Dioxide 23.1 meq/L (21.0-32.0); Potassium 3.7 meq/L (3.5-5.1)
[2018-04-08 11:10] LABS: Hemoglobin A1c 12.5 % (4.3-6.0)
[2018-04-08] MEDS ORDERED: Ketorolac Inj 30 MG/ML (IVP) Vial IV.PUSH SCH (14:00)
[2018-04-08] MEDS: Multivitamin/Minerals Therapeutic Tablet PO SCH (16:51)
[2018-04-08] MEDS: Gabapentin 100 MG Capsule PO SCH ×2 (16:51→17:05)
--- NOTE | 2018-04-08 17:01 | P.PNIM ---
Subjective Interval history: 53yo w f w dm admitted for cellulitis and abscess left hand s/ p id pt seen and examined, continues w severe pain in left hand, states sugars are better no nv, no fever Physical Exam Vital signs: Vital Signs 04/07/18 19:35 04/07/18 23:00 04/08/18 03:55 Temperature 98.8 F 98.1 F 97.1 F L Pulse Rate 79 73 77 Respiratory Rate 15 16 16 Blood Pressure 100/55 L 135/82 148/98 H Pulse Oximetry 95 99 04/08/18 07:41 04/08/18 11:44 Temperature 97.9 F 98.1 F Pulse Rate 81 82 Respiratory Rate 16 18 Blood Pressure 113/68 136/70 Pulse Oximetry 98 97 Intake & Output 04/07/18 04/08/18 04/08/18 18:59 06:59 18:59 Intake Total 3368 / 3368 480 / 480 525 / 525 Output Total 2650 / 2650 Balance 718 / 718 480 / 480 525 / 525 Weight 143.5 kg Intake: IV 968 / 968 525 / 525 NS Inj 1,000 ML @ 125 mls/hr IV 443 / 443 .CONT .Q8H YONG Rx#:[id number] Vancomycin Inj 2,500 MG In NS 525 / 525 525 / 525 Inj 500 ML @ 250 mls/hr IV.SIG Q18H YONG Rx#:[id number] Oral 2400 / 2400 480 / 480 Output: Urine 2650 / 2650 Other: # Voids 3 Date of Last Bowel Movement 04/07/18 Narrative: wdwn 53yo w f aaox3 nad heart s1s2 reg lungs clear no wrr abd soft obese nondt pos bs ext left hand bandaged warm digits perfused, sensation intact, Results Labs CBC & Chem 7: 04/08/18 07:35 04/08/18 07:35 Labs: Microbiology 04/06/18 20:20 Wound - Hand Gram Stain - Final 04/06/18 20:20 Wound - Hand Wound Culture - Preliminary Streptococcus species 04/05/18 23:54 Blood - Peripheral Aerobic Blood Culture - Preliminary No growth in 2 days 04/05/18 23:54 Blood - Peripheral Anaerobic Blood Culture - Preliminary No growth in 2 days 04/05/18 23:54 Blood - Peripheral Aerobic Blood Culture - Preliminary No growth in 2 days 04/05/18 23:54 Blood - Peripheral Anaerobic Blood Culture - Preliminary No growth in 2 days 04/06/18 01:50 Abscess - Hand Gram Stain - Final 04/06/18 01:50 Abscess - Hand Wound Culture - Preliminary 04/06/18 07:40 Clean Catch Urine Urine Culture - Final 10-50,000 cfu/mL mixed gram positive marilee (probable contaminants) Assessment and Plan (1) Extensor tenosynovitis of left wrist: Code(s): M65.832 - Other synovitis and tenosynovitis, left forearm Status: Acute (2) Abscess of left hand: Code(s): L02.512 - Cutaneous abscess of left hand Status: Acute Plan CELLULITIS and ABSCESS w EXTENSOR TENOSYNOVITIS s/p i/d extensor tenosynovectomy fourth compartment left hand and wrist - cont iv abx, fu cx, wound care per sx, pain control, w tenosynovitis, prob requires long ter iv abx , will consult ID., UNCONTROLLED DM - w significant hyperglycemia - add levemir, resume glucophage, check a1c >12, will need insulin, consult diabetic education and UTI - poa, fu cx, on abx cx contaminated, on abx above no futher needed MORBID OBESITY bmi 41 - diet activity when stable NICOTINE ADDICTION/tobacco abuse- cessation counseling , nicoderm prn wd dvt prophylaxis disposition - home when stable per ortho and when sugars better Progress Note: Quality VTE Deep Vein Thrombosis/Pulmonary Embolism Present on Admission: No
[2018-04-08] MEDS ORDERED: ceFAZolin Inj 2,000 MG in Sodium Chlor 0.9% Inj 80 ML IV.SIG SCH (18:00)
[2018-04-08] MEDS: Ketorolac Inj 30 MG/ML (IVP) Vial IV.PUSH SCH ×2 (18:07→23:59)
[2018-04-08] MEDS: Sod Chloride 0.9% Inj 1,000 ML IV.CONT SCH (18:09)
[2018-04-08] MEDS: ceFAZolin 2 GM Premix Inj 2 GM/50 ML PIGGYBACK IV.SIG SCH (18:41)
[2018-04-08] MEDS ORDERED: Pharmacy Ordered Lab Info OTHER ONE (22:45)
[2018-04-09] MEDS: ceFAZolin 2 GM Premix Inj 2 GM/50 ML PIGGYBACK IV.SIG SCH ×2 (02:27→09:58)
[2018-04-09] MEDS: Insulin NovoLOG Aspart Correctional Sugar Inj SQ SCH ×5 (02:28→20:47)
[2018-04-09] MEDS: Insulin Detemir Inj 1,000 UNIT/10 ML Vial SQ SCH ×2 (08:15→17:43)
[2018-04-09] MEDS: Gabapentin 100 MG Capsule PO SCH ×3 (08:16→17:44)
[2018-04-09] MEDS: Senna/Docusate Sodium 8.6/50 MG Tablet PO SCH ×2 (08:17→20:46)
[2018-04-09] MEDS: Multivitamin/Minerals Therapeutic Tablet PO SCH (08:17)
[2018-04-09] MEDS: Heparin - SQ 10,000 UNITS/ML Vial SQ SCH ×2 (08:18→20:46)
[2018-04-09] MEDS: Ketorolac Inj 30 MG/ML (IVP) Vial IV.PUSH SCH ×2 (08:18→17:45)
[2018-04-09] MEDS: Morphine Inj 4 MG/ML Vial IV.PUSH PRN ×3 (08:19→19:51)
[2018-04-09] MEDS ORDERED: Vancomycin Consult Pharmacy 1 EACH OTHER SCH ×3 (16:45)
--- NOTE | 2018-04-09 17:18 | P.PN ---
Subjective Interval history: complains of pain which is getting better able to move fingers better no fever complaint with limb elevation no numbness Physical Exam Vital signs: Vital Signs 04/08/18 19:30 04/08/18 23:20 04/09/18 03:50 Temperature 98.3 F 98.3 F 97.9 F Pulse Rate 73 83 82 Respiratory Rate 16 16 18 Blood Pressure 145/77 H 145/76 H 133/60 Pulse Oximetry 96 99 99 04/09/18 08:05 04/09/18 12:05 Temperature 98.4 F 97.9 F Pulse Rate 82 84 Respiratory Rate 17 18 Blood Pressure 113/74 140/88 Pulse Oximetry 97 98 Intake & Output 04/08/18 04/09/18 04/09/18 18:59 06:59 18:59 Intake Total 1325 / 1325 580 / 580 50 / 50 Balance 1325 / 1325 580 / 580 50 / 50 Weight 143.5 kg Intake: IV 1325 / 1325 100 / 100 50 / 50 NS Inj 1,000 ML @ 125 mls/hr IV 800 / 800 .CONT .Q8H YONG Rx#:[id number] Vancomycin Inj 2,500 MG In NS 525 / 525 Inj 500 ML @ 250 mls/hr IV.SIG Q18H YONG Rx#:[id number] Ancef 2 GM Premix Inj 2 gm In 100 / 100 50 / 50 50 ml @ 100 mls/hr IV.SIG Q8H YONG Rx#:[id number] Oral 480 / 480 Other: # Voids 2 Date of Last Bowel Movement 04/07/18 04/08/18 04/08/18 Narrative: left upper extremity: dressing and packing in place decreased swelling over the dorsal aspect of the wrist erythema and swelling noted over the dorsal aspect of the middle finger and index finger MP Joint region able to make a better fist intact sensation distally cultures: E.faecalis Results - Labs CBC & Chem 7: 04/08/18 07:35 04/09/18 07:33 Laboratory Results - last 24 hr 04/08/18 04/09/18 04/09/18 19:35 02:28 07:25 Creatinine Estimated GFR POC Glucose 230 H 167 H 213 H 04/09/18 04/09/18 04/09/18 07:33 11:31 17:12 Creatinine 1.02 H Estimated GFR 57 L POC Glucose 213 H 288 H Microbiology 04/06/18 20:20 Wound - Hand Acid Fast Bacilli Smear - Final No acid fast bacilli seen 04/05/18 23:54 Blood - Peripheral Aerobic Blood Culture - Preliminary No growth in 3 days 04/05/18 23:54 Blood - Peripheral Anaerobic Blood Culture - Preliminary No growth in 3 days 04/05/18 23:54 Blood - Peripheral Aerobic Blood Culture - Preliminary No growth in 3 days 04/05/18 23:54 Blood - Peripheral Anaerobic Blood Culture - Preliminary No growth in 3 days 04/06/18 20:20 Wound - Hand Gram Stain - Final 04/06/18 20:20 Wound - Hand Wound Culture - Final Enterococcus faecalis 04/06/18 01:50 Abscess - Hand Gram Stain - Final 04/06/18 01:50 Abscess - Hand Wound Culture - Final Enterococcus faecalis Assessment and Plan - Assessment (1) Extensor tenosynovitis of left wrist Code(s): M65.832 - Other synovitis and tenosynovitis, left forearm Status: Acute (2) Abscess of left hand Code(s): L02.512 - Cutaneous abscess of left hand Status: Acute - Plan surrounding skin is cleaned with alcohol wipes packing pulled out and repacked as there was still drainage dry dressing, abd and soft roll applied splint was reapplied with new jai wrap keep the part elevated finger range of motion exercises continue with IV antibiotics hand surgery will follow.
--- NOTE | 2018-04-09 17:32 | P.PNIM ---
Subjective Interval history: 53 yo w f admitted with abscess and tenosynovitis left hand pt seen and examined doing ok, states pain was a lot better and able to move fingers better today, denies sob or cp, states she needs to leave hospital for 1 hour to go arranged things at home for a bit Physical Exam Vital signs: Vital Signs 04/08/18 19:30 04/08/18 23:20 04/09/18 03:50 Temperature 98.3 F 98.3 F 97.9 F Pulse Rate 73 83 82 Respiratory Rate 16 16 18 Blood Pressure 145/77 H 145/76 H 133/60 Pulse Oximetry 96 99 99 04/09/18 08:05 04/09/18 12:05 Temperature 98.4 F 97.9 F Pulse Rate 82 84 Respiratory Rate 17 18 Blood Pressure 113/74 140/88 Pulse Oximetry 97 98 Intake & Output 04/08/18 04/09/18 04/09/18 18:59 06:59 18:59 Intake Total 1325 / 1325 580 / 580 50 / 50 Balance 1325 / 1325 580 / 580 50 / 50 Weight 143.5 kg Intake: IV 1325 / 1325 100 / 100 50 / 50 NS Inj 1,000 ML @ 125 mls/hr IV 800 / 800 .CONT .Q8H YONG Rx#:[id number] Vancomycin Inj 2,500 MG In NS 525 / 525 Inj 500 ML @ 250 mls/hr IV.SIG Q18H YONG Rx#:[id number] Ancef 2 GM Premix Inj 2 gm In 100 / 100 50 / 50 50 ml @ 100 mls/hr IV.SIG Q8H YONG Rx#:[id number] Oral 480 / 480 Other: # Voids 2 Date of Last Bowel Movement 04/07/18 04/08/18 04/08/18 Narrative: wdwn 53yo w f aaox3 nad heart s1s2 reg lungs clear no wrr abd soft obese nondt pos bs ext left hand bandaged warm digits perfused, sensation intact,less edema Results Labs CBC & Chem 7: 04/08/18 07:35 04/09/18 07:33 Labs: Microbiology 04/06/18 20:20 Wound - Hand Acid Fast Bacilli Smear - Final No acid fast bacilli seen 04/05/18 23:54 Blood - Peripheral Aerobic Blood Culture - Preliminary No growth in 3 days 04/05/18 23:54 Blood - Peripheral Anaerobic Blood Culture - Preliminary No growth in 3 days 04/05/18 23:54 Blood - Peripheral Aerobic Blood Culture - Preliminary No growth in 3 days 04/05/18 23:54 Blood - Peripheral Anaerobic Blood Culture - Preliminary No growth in 3 days 04/06/18 20:20 Wound - Hand Gram Stain - Final 04/06/18 20:20 Wound - Hand Wound Culture - Final Enterococcus faecalis 04/06/18 01:50 Abscess - Hand Gram Stain - Final 04/06/18 01:50 Abscess - Hand Wound Culture - Final Enterococcus faecalis Assessment and Plan (1) Extensor tenosynovitis of left wrist: Code(s): M65.832 - Other synovitis and tenosynovitis, left forearm Status: Acute (2) Abscess of left hand: Code(s): L02.512 - Cutaneous abscess of left hand Status: Acute Plan CELLULITIS and ABSCESS w EXTENSOR TENOSYNOVITIS s/p i/d extensor tenosynovectomy fourth compartment left hand and wrist - cont iv abx, fu cx, wound care per sx, pain control, w tenosynovitis, prob requires long ter iv abx , will consult ID., UNCONTROLLED DM - w significant hyperglycemia - add levemir, resume glucophage, check a1c >12, will need insulin, consult diabetic education and insulin teaching UTI - poa, fu cx, on abx cx contaminated, on abx above no futher needed MORBID OBESITY bmi 41 - diet activity when stable NICOTINE ADDICTION/tobacco abuse- cessation counseling , nicoderm prn wd dvt prophylaxis disposition - home when stable per ortho and when sugars better and on abx per ID Progress Note: Quality VTE Deep Vein Thrombosis/Pulmonary Embolism Present on Admission: No
--- NOTE | 2018-04-09 18:16 | MB ---
cc: Alexys Waddell MD DATE: 04/09/2018 REQUESTING PHYSICIAN: Chen Muse DO REASON FOR CONSULTATION: Tenosynovitis/abscess. HISTORY OF PRESENT ILLNESS: This is a 53-year-old white female who developed an infection of the left hand at the dorsal aspect. The patient states that she was working around her yard and she thinks she may have had a thorn injury or insect bite at the hand. She developed swelling at the dorsum of the hand and she poked it herself and got a little bit of fluid. Her hand subsequently became swollen up and the swelling extended to her fingers and was also proceeding to climb up her forearm. She was seen in the emergency department on 04/05/2018. She states that the actual injury began on 04/04/2017. She reported having fever and chills. The patient was evaluated by hand surgery and was taken to surgery. She underwent incision and drainage and debridement of a left hand abscess and debridement and extensor tenosynovectomy of the left hand/wrist. There was noted to be extensive inflammatory phlegmon at the extensor tendon and extensor tenosynovitis. Culture came back with Enterococcus faecalis. This consultation is requested for antibiotic management. The patient is in no acute distress. She has no current complaints besides some pain in the left hand. The left hand is wrapped in a full surgical dressing. The patient has been afebrile and white blood cell count is normal. She had one elevated temperature on presentation of 100.4 degrees. PAST MEDICAL HISTORY: Cholecystectomy, tonsillectomy, prediabetes. ALLERGIES: SULFAMETHOXAZOLE/TRIMETHOPRIM, PENICILLIN, PROPOXYPHENE, MISOPROSTOL, DICLOFENAC, DIFLUNISAL. MEDICATIONS: 1. Cefazolin. 2. [place] 7.5. 3. Levemir. 4. Glucophage. 5. Morphine. 6. Theragran. 7. Senokot. 8. Insulin. SOCIAL HISTORY: The patient is a smoker. No alcohol. No illicit drugs. FAMILY HISTORY: Noncontributory. The patient reports that her mother had a touch of diabetes. REVIEW OF SYSTEMS: All systems have been reviewed and are negative. PHYSICAL EXAMINATION: GENERAL: This is a moderately obese female who is in no acute distress. She is awake, alert and oriented. VITAL SIGNS: Temperature 97.9, BP 140/88, respirations 18, heart rate 84. HEENT: The head is atraumatic. Extraocular movements grossly intact. Pupils reactive to light. No icterus. Oropharynx with moist mucosa. No visible lesions. NECK: Supple without adenopathy. LUNGS: Clear breath sounds bilaterally. HEART: Regular S1 and S2 without murmurs. ABDOMEN: Bowel sounds present. Soft, nontender. EXTREMITIES: No clubbing or cyanosis. The left upper extremity has a surgical dressing securing the hand wound. This was not removed for inspection at this time. The patient is due to be evaluated by the hand surgeon this evening. The fingers have no swelling and there is no visible erythema. SKIN: No diffuse rash. NEUROLOGIC: No gross focal findings. PSYCHIATRIC: The patient is calm and cooperative. LABORATORY DATA: WBC 5.8, platelets 168, hemoglobin 9.8. Creatinine 1.02, estimated GFR 57. IMPRESSION: Abscess of the left hand in addition to tenosynovitis, status post incision and debridement and tenosynovectomy. RECOMMENDATIONS: 1. Discontinue ceftriaxone. 2. Begin vancomycin because of the patient's ALLERGY TO PENICILLIN. 3. Follow kidney function. 4. Monitor response to antibiotics. I recommend giving the patient a 2-week course of antibiotics for this infection. Thank you for this consultation. I will monitor the patient's progress and make further recommendations on followup if necessary. MD ROCHELLE Gandhi/joshua , 04:33 PM , 04:47 PM
[2018-04-09] MEDS: Vancomycin Inj 2,500 MG in Sodium Chlor 0.9% Inj 500 ML IV.SIG SCH (20:46)
[2018-04-10] MEDS: Ketorolac Inj 30 MG/ML (IVP) Vial IV.PUSH SCH ×3 (01:04→18:11)
[2018-04-10] MEDS: Morphine Inj 4 MG/ML Vial IV.PUSH PRN ×4 (01:16→17:26)
[2018-04-10] MEDS: Insulin NovoLOG Aspart Correctional Sugar Inj SQ SCH ×5 (03:14→20:53)
[2018-04-10] MEDS: Insulin Detemir Inj 1,000 UNIT/10 ML Vial SQ SCH ×2 (08:53→18:09)
[2018-04-10] MEDS: Gabapentin 100 MG Capsule PO SCH ×3 (08:54→18:12)
[2018-04-10] MEDS: Multivitamin/Minerals Therapeutic Tablet PO SCH (08:54)
[2018-04-10] MEDS: Heparin - SQ 10,000 UNITS/ML Vial SQ SCH ×2 (08:54→20:52)
[2018-04-10] MEDS: Senna/Docusate Sodium 8.6/50 MG Tablet PO SCH ×2 (08:55→20:52)
--- NOTE | 2018-04-10 15:44 | P.PNIM ---
Subjective Interval history: Patient reports she is feeling okay today. Pain is controlled. Afebrile. Physical Exam Vital signs: Vital Signs 04/09/18 16:05 04/09/18 20:00 04/10/18 00:00 Temperature 97.9 F 97.5 F L 97.5 F L Pulse Rate 86 76 73 Respiratory Rate 17 18 18 Blood Pressure 123/83 125/75 150/78 H Pulse Oximetry 95 96 100 04/10/18 04:00 04/10/18 08:00 04/10/18 12:00 Temperature 98.2 F 98.2 F 98.1 F Pulse Rate 82 77 84 Respiratory Rate 18 18 20 Blood Pressure 138/95 H 139/68 163/89 H Pulse Oximetry 98 92 L 97 Intake & Output 04/09/18 04/10/18 04/10/18 18:59 06:59 18:59 Intake Total 770 / 770 765 / 765 Balance 770 / 770 765 / 765 Weight 135 kg Intake: IV 50 / 50 525 / 525 Vancomycin Inj 2,500 MG In NS 525 / 525 Inj 500 ML @ 250 mls/hr IV.SIG Q24H YONG Rx#:[id number] Ancef 2 GM Premix Inj 2 gm In 50 / 50 50 ml @ 100 mls/hr IV.SIG Q8H YONG Rx#:[id number] Oral 720 / 720 240 / 240 Other: # Voids 5 2 Date of Last Bowel Movement 04/09/18 # Bowel Movements 1 Narrative: GENERAL: Obese female in no acute distress. CARDIOVASCULAR: Normal rate and regular rhythm without murmurs, gallops, or rubs. RESPIRATORY: Good respiratory efforts. Breath sounds equal and clear to auscultation bilaterally. GASTROINTESTINAL: Abdomen soft, non-tender, non-distended. Normal active bowel sounds MUSCULOSKELETAL: Left arm/hand with postsurgical dressing. Neurovascularly intact at the fingers. NEURO: Alert & Oriented x4 to person, place, time, situation. Moves all ext x4 PSYCH: Appropriate mood and affect. Results Labs CBC & Chem 7: 04/08/18 07:35 04/09/18 07:33 Labs: Microbiology 04/05/18 23:54 Blood - Peripheral Aerobic Blood Culture - Preliminary No growth in 4 days 04/05/18 23:54 Blood - Peripheral Anaerobic Blood Culture - Preliminary No growth in 4 days 04/05/18 23:54 Blood - Peripheral Aerobic Blood Culture - Preliminary No growth in 4 days 04/05/18 23:54 Blood - Peripheral Anaerobic Blood Culture - Preliminary No growth in 4 days 04/06/18 20:20 Wound - Hand Acid Fast Bacilli Smear - Final No acid fast bacilli seen Assessment and Plan (1) Extensor tenosynovitis of left wrist: Code(s): M65.832 - Other synovitis and tenosynovitis, left forearm Status: Acute (2) Abscess of left hand: Code(s): L02.512 - Cutaneous abscess of left hand Status: Acute Plan 53-year-old female admitted with cellulitis, abscess with extensor tenosynovitis of the left hand and wrist. Cellulitis, abscess with extensor tenosynovitis of the left hand and wrist: - Status post I&D by hand surgery. - Continue IV antibiotics. Per ID, will need 2 weeks of IV vancomycin. Uncontrolled diabetes: - Patient started on Levemir. Continue Glucophage. Hemoglobin A1c greater than 12. - Will need insulin on discharge. Patient seen by extension educator. Case management to assist with home medications. If unable to get edvin, will need to transition to a more affordable insulin. MORBID OBESITY bmi 41 - diet activity when stable Tobacco abuse: Patient has been extensively counseled. Dispo: Needs to continue IV antibiotics for 2 weeks. Progress Note: Quality VTE Deep Vein Thrombosis/Pulmonary Embolism Present on Admission: No
--- NOTE | 2018-04-10 18:48 | P.PN ---
Subjective Interval history: complains of pain no fever or numbness Physical Exam Vital signs: Vital Signs 04/09/18 20:00 04/10/18 00:00 04/10/18 04:00 Temperature 97.5 F L 97.5 F L 98.2 F Pulse Rate 76 73 82 Respiratory Rate 18 18 18 Blood Pressure 125/75 150/78 H 138/95 H Pulse Oximetry 96 100 98 04/10/18 08:00 04/10/18 12:00 04/10/18 16:30 Temperature 98.2 F 98.1 F 98.1 F Pulse Rate 77 84 72 Respiratory Rate 18 20 18 Blood Pressure 139/68 163/89 H 136/61 Pulse Oximetry 92 L 97 95 Intake & Output 04/09/18 04/10/18 04/10/18 18:59 06:59 18:59 Intake Total 770 / 770 765 / 765 480 / 480 Balance 770 / 770 765 / 765 480 / 480 Weight 135 kg Intake: IV 50 / 50 525 / 525 Vancomycin Inj 2,500 MG In NS 525 / 525 Inj 500 ML @ 250 mls/hr IV.SIG Q24H YONG Rx#:[id number] Ancef 2 GM Premix Inj 2 gm In 50 / 50 50 ml @ 100 mls/hr IV.SIG Q8H YONG Rx#:[id number] Oral 720 / 720 240 / 240 480 / 480 Other: # Voids 5 2 4 Date of Last Bowel Movement 04/09/18 # Bowel Movements 1 Narrative: left upper extremity: worsening erythema over the dorsal aspect of the index, middle and ring fingers able to move fingers better drainage noted from the wounds over the hand Results - Labs CBC & Chem 7: 04/08/18 07:35 04/09/18 07:33 Laboratory Results - last 24 hr 04/09/18 04/09/18 04/10/18 18:01 19:55 03:08 POC Glucose 231 H 220 H Random Vancomycin 7.6 04/10/18 04/10/18 04/10/18 07:31 11:49 17:12 POC Glucose 234 H 277 H 231 H Random Vancomycin Microbiology 04/05/18 23:54 Blood - Peripheral Aerobic Blood Culture - Preliminary No growth in 4 days 04/05/18 23:54 Blood - Peripheral Anaerobic Blood Culture - Preliminary No growth in 4 days 04/05/18 23:54 Blood - Peripheral Aerobic Blood Culture - Preliminary No growth in 4 days 04/05/18 23:54 Blood - Peripheral Anaerobic Blood Culture - Preliminary No growth in 4 days 04/06/18 20:20 Wound - Hand Acid Fast Bacilli Smear - Final No acid fast bacilli seen Assessment and Plan - Assessment (1) Extensor tenosynovitis of left wrist Code(s): M65.832 - Other synovitis and tenosynovitis, left forearm Status: Acute (2) Abscess of left hand Code(s): L02.512 - Cutaneous abscess of left hand Status: Acute - Plan surrounding skin is cleaned with alcohol wipes packing pulled out and repacked as there was still drainage dry dressing, abd and soft roll applied splint was reapplied with new jai wrap keep the part elevated finger range of motion exercises continue with IV antibiotics keep the patient npo from 7 am will take her for wash, drainage and debridement left hand and wrist on 04/11/18
[2018-04-10] MEDS: Vancomycin Inj 2,500 MG in Sodium Chlor 0.9% Inj 500 ML IV.SIG SCH (20:53)
[2018-04-11] MEDS: Ketorolac Inj 30 MG/ML (IVP) Vial IV.PUSH SCH ×2 (00:56→08:30)
[2018-04-11] MEDS: Insulin NovoLOG Aspart Correctional Sugar Inj SQ SCH ×5 (03:06→22:38)
[2018-04-11 07:13] LABS: Hematocrit 27.7 % (35.0-46.0); Hemoglobin 9.2 gm/dL (11.6-15.3); Mean Corpuscular HGB Conc 33.2 % (32.0-36.0); Mean Corpuscular Hemoglobin 27.9 pg (27.0-34.0); Mean Corpuscular Volume 84.2 fL (80.0-100.0); Mean Platelet Volume 9.2 fL (7.0-11.0); Platelet Count 187 th/mm3 (150-450); Red Blood Count 3.29 mil/mm3 (4.00-5.30); Red Cell Distribution Width 15.5 % (11.6-17.2); White Blood Count 4.1 th/mm3 (4.0-11.0)
[2018-04-11 07:32] LABS: Calcium 8.3 mg/dL (8.5-10.1); Carbon Dioxide 25.5 meq/L (21.0-32.0); Potassium 3.9 meq/L (3.5-5.1)
[2018-04-11] MEDS: Heparin - SQ 10,000 UNITS/ML Vial SQ SCH (08:29)
[2018-04-11] MEDS: Insulin Detemir Inj 1,000 UNIT/10 ML Vial SQ SCH ×2 (08:29→19:49)
[2018-04-11] MEDS: Gabapentin 100 MG Capsule PO SCH ×3 (08:30→20:39)
[2018-04-11] MEDS: Senna/Docusate Sodium 8.6/50 MG Tablet PO SCH ×2 (08:30→20:39)
[2018-04-11] MEDS: Multivitamin/Minerals Therapeutic Tablet PO SCH (08:30)
[2018-04-11] MEDS: Morphine Inj 4 MG/ML Vial IV.PUSH PRN ×2 (10:27→14:44)
--- NOTE | 2018-04-11 10:38 | P.PNIM ---
Subjective Interval history: Patient reports she is feeling okay today. Pain is controlled. Due for repeat debridement today by hand surgery. Physical Exam Vital signs: Vital Signs 04/10/18 12:00 04/10/18 16:30 04/10/18 20:00 Temperature 98.1 F 98.1 F 98.1 F Pulse Rate 84 72 96 H Respiratory Rate 20 18 17 Blood Pressure 163/89 H 136/61 139/68 Pulse Oximetry 97 95 95 04/11/18 00:00 04/11/18 04:00 04/11/18 08:41 Temperature 97.3 F L 97.7 F 97.9 F Pulse Rate 71 67 74 Respiratory Rate 16 16 18 Blood Pressure 145/80 H 137/83 143/64 H Pulse Oximetry 100 95 98 Intake & Output 04/10/18 04/11/18 04/11/18 18:59 06:59 18:59 Intake Total 480 / 480 1005 / 1005 Balance 480 / 480 1005 / 1005 Weight 135.2 kg Intake: IV 525 / 525 Vancomycin Inj 2,500 MG In NS 525 / 525 Inj 500 ML @ 250 mls/hr IV.SIG Q24H [facility] Rx#:[id number] Oral 480 / 480 480 / 480 Other: # Voids 4 10 Narrative: GENERAL: Obese female in no acute distress. CARDIOVASCULAR: Normal rate and regular rhythm without murmurs, gallops, or rubs. RESPIRATORY: Good respiratory efforts. Breath sounds equal and clear to auscultation bilaterally. MUSCULOSKELETAL: Left arm/hand with postsurgical dressing. Neurovascularly intact at the fingers. NEURO: Alert & Oriented x4 to person, place, time, situation. Moves all ext x4 PSYCH: Appropriate mood and affect. Results Labs CBC & Chem 7: 04/11/18 05:52 04/11/18 05:45 Labs: Microbiology 04/05/18 23:54 Blood - Peripheral Aerobic Blood Culture - Preliminary No growth in 4 days 04/05/18 23:54 Blood - Peripheral Anaerobic Blood Culture - Preliminary No growth in 4 days 04/05/18 23:54 Blood - Peripheral Aerobic Blood Culture - Preliminary No growth in 4 days 04/05/18 23:54 Blood - Peripheral Anaerobic Blood Culture - Preliminary No growth in 4 days Assessment and Plan (1) Extensor tenosynovitis of left wrist: Code(s): M65.832 - Other synovitis and tenosynovitis, left forearm Status: Acute (2) Abscess of left hand: Code(s): L02.512 - Cutaneous abscess of left hand Status: Acute Plan 53-year-old female admitted with cellulitis, abscess with extensor tenosynovitis of the left hand and wrist. Cellulitis, abscess with extensor tenosynovitis of the left hand and wrist: - Status post I&D by hand surgery. - Continue IV antibiotics. Per ID, will need 2 weeks of IV vancomycin. -Repeat debridement today 04/11/18 by hand surgery. Uncontrolled diabetes: - Patient started on Levemir. Continue Glucophage. Hemoglobin A1c greater than 12. - Will need insulin on discharge. Patient seen by route manager. Case management to assist with home medications. If unable to get edvin, will need to transition to a more affordable insulin. MORBID OBESITY bmi 41 - diet activity when stable Tobacco abuse: Patient has been extensively counseled. Dispo: Needs to continue IV antibiotics for 2 weeks. Progress Note: Quality VTE Deep Vein Thrombosis/Pulmonary Embolism Present on Admission: No
--- NOTE | 2018-04-11 14:33 | P.PNID ---
Subjective Remarks: Recent says that she has pain in the left hand. No other complaints. Afebrile. Due to go for another debridement procedure today. Enterococcus in the wound sensitive to ampicillin. However she is allergic to penicillin. 53-year-old white female who developed an infection of the left hand at the dorsal aspect. The patient states that she was working around her yard and she thinks she may have had a thorn injury or insect bite at the hand. She developed swelling at the dorsum of the hand and she poked it herself and got a little bit of fluid. Her hand subsequently became swollen up and the swelling extended to her fingers and was also proceeding to climb up her forearm. Antibiotics: Vancomycin started 04/05/2018. Past Medical History: PAST MEDICAL HISTORY: Cholecystectomy, tonsillectomy, prediabetes. Allergies/Adverse Reactions: Allergies diclofenac Allergy (Severe, Verified 04/05/18 22:46) ITCHING diflunisal Allergy (Severe, Verified 04/05/18 22:46) ITCHING misoprostol Allergy (Severe, Verified 04/05/18 22:46) ITCHING penicillin G Allergy (Severe, Verified 04/05/18 22:46) HIVES/ITCHING penicillin V Allergy (Severe, Verified 04/05/18 22:46) ITCHING propoxyphene Allergy (Severe, Verified 04/05/18 22:46) PURITIS Sulfa (Sulfonamide Antibiotics) Allergy (Severe, Verified 04/05/18 22:46) Anaphylaxis sulfamethoxazole Allergy (Severe, Verified 04/05/18 22:46) ITCHING, HIVES trimethoprim Allergy (Severe, Verified 04/05/18 22:46) ITCHING, HIVES Objective Vital Signs 04/10/18 16:30 04/10/18 20:00 04/11/18 00:00 Temperature 98.1 F 98.1 F 97.3 F L Pulse Rate 72 96 H 71 Respiratory Rate 18 17 16 Blood Pressure 136/61 139/68 145/80 H Pulse Oximetry 95 95 100 04/11/18 04:00 04/11/18 08:41 04/11/18 13:27 Temperature 97.7 F 97.9 F 97.3 F L Pulse Rate 67 74 68 Respiratory Rate 16 18 17 Blood Pressure 137/83 143/64 H 158/86 H Pulse Oximetry 95 98 98 Intake & Output 04/10/18 04/11/18 04/11/18 18:59 06:59 18:59 Intake Total 480 / 480 1005 / 1005 Balance 480 / 480 1005 / 1005 Weight 135.2 kg Intake: IV 525 / 525 Vancomycin Inj 2,500 MG In NS 525 / 525 Inj 500 ML @ 250 mls/hr IV.SIG Q24H [facility] Rx#:[id number] Oral 480 / 480 480 / 480 Other: # Voids 4 10 04/05/18 23:54 Blood - Peripheral Aerobic Blood Culture - Final No growth in 5 days 04/05/18 23:54 Blood - Peripheral Anaerobic Blood Culture - Final No growth in 5 days 04/05/18 23:54 Blood - Peripheral Aerobic Blood Culture - Final No growth in 5 days 04/05/18 23:54 Blood - Peripheral Anaerobic Blood Culture - Final No growth in 5 days 04/06/18 20:20 Wound - Hand Acid Fast Bacilli Smear - Final No acid fast bacilli seen 04/06/18 20:20 Wound - Hand Mycobacterial Culture - Pending 04/06/18 20:20 Wound - Hand Gram Stain - Final 04/06/18 20:20 Wound - Hand Wound Culture - Final Enterococcus faecalis 04/06/18 01:50 Abscess - Hand Gram Stain - Final 04/06/18 01:50 Abscess - Hand Wound Culture - Final Enterococcus faecalis Lab - Hematology Results 04/11/18 05:52 WBC 4.1 RBC 3.29 L Hgb 9.2 L Hct 27.7 L MCV 84.2 MCH 27.9 MCHC 33.2 RDW 15.5 Plt Count 187 MPV 9.2 Lab - Chemistry Results 04/09/18 04/09/18 04/10/18 17:12 19:55 03:08 Sodium Potassium Chloride Carbon Dioxide Anion Gap BUN Creatinine Estimated GFR POC Glucose 288 H 231 H 220 H Random Glucose Calcium 04/10/18 04/10/18 04/10/18 07:31 11:49 17:12 Sodium Potassium Chloride Carbon Dioxide Anion Gap BUN Creatinine Estimated GFR POC Glucose 234 H 277 H 231 H Random Glucose Calcium 04/10/18 04/10/18 04/11/18 20:13 20:15 03:01 Sodium Potassium Chloride Carbon Dioxide Anion Gap BUN Creatinine Estimated GFR POC Glucose 272 H 239 H 228 H Random Glucose Calcium 04/11/18 04/11/18 04/11/18 05:45 07:50 11:48 Sodium 143 Potassium 3.9 Chloride 108 H Carbon Dioxide 25.5 Anion Gap 10 BUN 23 H Creatinine 1.07 H Estimated GFR 54 L POC Glucose 207 H 230 H Random Glucose 197 H Calcium 8.3 L Imaging: ITS Impressions Chest X-Ray 04/06/18 00:01 CONCLUSION: No acute disease Hand X-Ray 04/06/18 00:01 CONCLUSION: No acute bony findings Physical Exam: PHYSICAL EXAMINATION: GENERAL: Patient in no acute distress. Awake and alert. HEENT: Extraocular movements grossly intact. Pupils reactive to light. No icterus. Oropharynx with moist mucosa. No visible lesions. NECK: Supple without adenopathy. LUNGS: Clear breath sounds. HEART: Regular S1 and S2 without murmurs. EXTREMITIES: No clubbing or cyanosis. The left upper extremity has surgical dressing securing the hand wound. No visible erythema. SKIN: No diffuse rash. NEUROLOGIC: Nonfocal. PSYCHIATRIC: Calm and cooperative. Assessment and Plan - Plan IMPRESSION: Abscess of the left hand in addition to tenosynovitis, status post incision and debridement and tenosynovectomy. RECOMMENDATIONS: 1. Discontinue ceftriaxone. 2. Begin vancomycin because of the patient's ALLERGY TO PENICILLIN. Because of the resistant pattern of the enterococcus. She needs to be treated with vancomycin. If there is problems with her renal function we may need to switch to daptomycin. 3. Follow kidney function. 4. Monitor response to antibiotics. plans for 2 weeks of IV antibiotics.
[2018-04-11] MEDS ORDERED: Neomycin/Polymyxin G.U. Irrigant 1 ML Ampul ONE (16:00)
[2018-04-11] MEDS ORDERED: Succinylcholine Inj 100 MG/5 ML Syringe IV.PUSH ONE (16:38)
[2018-04-11] MEDS ORDERED: Lidocaine PF 1% Inj 5 ML Syringe OTHER ONE (16:38)
[2018-04-11] MEDS ORDERED: Clindamycin Inj 600 MG/4 ML Vial ONE (17:05)
--- NOTE | 2018-04-11 17:57 | P.OP ---
- Preoperative Diagnosis (1) Abscess of left hand (2) Extensor tenosynovitis of left wrist - Postoperative Diagnosis (1) Abscess of left hand (2) Extensor tenosynovitis of left wrist Date of procedure: 04/11/18 Procedure: wash, debridement left hand and wrist Anesthesia: GETA Surgeon: Carlos Royal MD Estimated blood loss (mL): 10 Tourniquet time (min): 24 Pathology: other (swab for c/s) Operation and Findings: extensive inflammatory tissue and necrotic tissue dorsal aspect of the hand and fingers
[2018-04-11] MEDS ORDERED: *morphine SULFATE 10 MG/ML PERIprocedure ONLY ONE ×2 (18:21→18:44)
--- NOTE | 2018-04-11 18:56 | MP ---
cc: Carlos Royal MD DATE OF OPERATION: 04/11/2018 PREOPERATIVE DIAGNOSIS: Abscess, left hand, with extensor tenosynovitis, left wrist. POSTOPERATIVE DIAGNOSIS: Abscess, left hand, with extensor tenosynovitis, left wrist. PROCEDURE PERFORMED: Debridement, left hand and wrist. SURGEON: Carlos Royal MD ANESTHESIA: General. ESTIMATED BLOOD LOSS: 10 mL TOURNIQUET TIME: 24 minutes at 250 mmHg. SPECIMENS: A swab was sent for culture and sensitivity. DISPOSITION: To PACU, stable. INTRAOPERATIVE FINDINGS: Extensive inflammatory tissue and necrotic tissue over the dorsal aspect of the hand and fingers, left side. INDICATIONS: The patient is a 53-year-old female with abscess over the dorsal aspect of the left hand and extensor tenosynovitis, status post I and D and extensor tenosynovectomy left wrist about 4-5 days ago. The patient continued to have worsening symptoms distally over the dorsal aspect of the fingers and hand and cultures were growing Enterococcus faecalis and she was consented for incision and drainage, debridement, left hand and wrist. The patient was explained the risks and benefits of the procedure. PROCEDURE IN DETAIL: The patient was brought to the operating room. Under general anesthesia, the left upper extremity was thoroughly prepped and draped. The previously placed sutures were removed over the dorsal aspect of the hand. There was evidence of extensive inflammatory tissue with thrombosed veins in the region. The incision was then extended dorsally to the dorsal aspect of the MP joint of the middle finger. Skin flaps were elevated. Inflammatory tissue was removed by combination of sharp and blunt dissection using a rongeur. The thrombosed veins were excised and tied with 3-0 silk ties. Inflammatory tissue was covering the extensor tendons of the fingers, which were debrided. Subfascial region of the extensor tendon was also debrided of inflammatory tissue. Necrotic tissue was noted between the web spaces between the index, middle and ring fingers. An excisional debridement was carried out. The wound over the dorsal aspect of the wrist was retained and the suture over the proximal aspect of the incision was opened. Thorough wash was given using hydrogen peroxide initially this was then followed by normal saline mixed with irrigant. About a liter of solution was used. Bleeding points were cauterized using bipolar cautery. Tourniquet was deflated at 24 minutes. She had good distal circulation after release of tourniquet. Packing of the wounds were then carried out using 1/4-inch Iodoform packing material. The skin flaps were then loosely approximated using 4-0 nylon in a horizontal mattress interrupted fashion. She had good distal circulation at the end of the procedure. The patient was sent to recovery in stable condition. The plan will be to continue with IV antibiotics based on ID recommendation, follow up cultures and keep the limb elevated and change the packing tomorrow. Carlos Royal MD SE/karla/ll , 06:01 PM , 06:09 PM
[2018-04-11] MEDS ORDERED: Pharmacy Ordered Lab Info OTHER ONE (19:45)
[2018-04-11] MEDS: Vancomycin Inj 2,500 MG in Sodium Chlor 0.9% Inj 500 ML IV.SIG SCH (22:46)
[2018-04-12] MEDS: Morphine Inj 4 MG/ML Vial IV.PUSH PRN ×5 (01:12→21:05)
[2018-04-12] MEDS: Insulin NovoLOG Aspart Correctional Sugar Inj SQ SCH ×5 (02:46→21:06)
[2018-04-12] MEDS: Senna/Docusate Sodium 8.6/50 MG Tablet PO SCH ×2 (10:12→21:06)
[2018-04-12] MEDS: Multivitamin/Minerals Therapeutic Tablet PO SCH (10:12)
[2018-04-12] MEDS: Gabapentin 100 MG Capsule PO SCH ×3 (10:14→17:18)
[2018-04-12] MEDS: Insulin Detemir Inj 1,000 UNIT/10 ML Vial SQ SCH ×2 (10:15→17:18)
--- NOTE | 2018-04-12 14:54 | P.PNIM ---
Subjective Interval history: Patient reports she is feeling okay today. Pain is controlled. Afebrile. Physical Exam Vital signs: Vital Signs 04/11/18 16:00 04/11/18 18:08 04/11/18 18:15 Temperature 98.3 F 97.9 F Pulse Rate 66 82 80 Respiratory Rate 18 21 22 Blood Pressure 155/72 H 142/72 H 148/84 H Pulse Oximetry 96 93 L 94 L 04/11/18 18:30 04/11/18 18:45 04/11/18 18:50 Temperature 98.2 F Pulse Rate 78 78 75 Respiratory Rate 18 18 16 Blood Pressure 135/75 157/77 H 157/77 H Pulse Oximetry 96 97 97 04/11/18 20:00 04/11/18 23:40 04/12/18 03:55 Temperature 98.4 F 98 F 97.8 F Pulse Rate 76 76 76 Respiratory Rate 14 17 17 Blood Pressure 134/76 140/79 161/66 H Pulse Oximetry 93 L 97 99 04/12/18 08:00 04/12/18 12:00 Temperature 98.5 F 98.7 F Pulse Rate 79 72 Respiratory Rate 18 18 Blood Pressure 135/64 148/79 H Pulse Oximetry 93 L 95 Intake & Output 04/11/18 04/12/18 04/12/18 18:59 06:59 18:59 Intake Total 300 / 300 765 / 765 Output Total 10 / 10 Balance 290 / 290 765 / 765 Weight 138.6 kg Intake: IV 525 / 525 Vancomycin Inj 2,500 MG In NS 525 / 525 Inj 500 ML @ 250 mls/hr IV.SIG Q24H [facility] Rx#:[id number] Oral 240 / 240 Anesthesia Amount 300 / 300 Output: Estimated Blood Loss 10 / 10 Other: # Voids 3 # Bowel Movements 0 Narrative: GENERAL: Obese female in no acute distress. CARDIOVASCULAR: Normal rate and regular rhythm without murmurs, gallops, or rubs. RESPIRATORY: Good respiratory efforts. Breath sounds equal and clear to auscultation bilaterally. MUSCULOSKELETAL: Left arm/hand with postsurgical dressing. Neurovascularly intact at the fingers. NEURO: Alert & Oriented x4 to person, place, time, situation. Moves all ext x4 PSYCH: Appropriate mood and affect. Results Labs CBC & Chem 7: 04/11/18 05:52 02/20/19 05:45 Labs: Microbiology 04/11/18 17:22 Wound - Hand Gram Stain - Final 04/11/18 17:22 Wound - Hand Wound Culture - Preliminary 04/11/18 17:22 Wound - Hand Fungal Smear - Final No fungal elements seen 04/05/18 23:54 Blood - Peripheral Aerobic Blood Culture - Final No growth in 5 days 04/05/18 23:54 Blood - Peripheral Anaerobic Blood Culture - Final No growth in 5 days 04/05/18 23:54 Blood - Peripheral Aerobic Blood Culture - Final No growth in 5 days 04/05/18 23:54 Blood - Peripheral Anaerobic Blood Culture - Final No growth in 5 days Assessment and Plan (1) Extensor tenosynovitis of left wrist: Code(s): M65.832 - Other synovitis and tenosynovitis, left forearm Status: Acute (2) Abscess of left hand: Code(s): L02.512 - Cutaneous abscess of left hand Status: Acute Plan 53-year-old female admitted with cellulitis, abscess with extensor tenosynovitis of the left hand and wrist. Cellulitis, abscess with extensor tenosynovitis of the left hand and wrist: - Status post I&D by hand surgery. - Continue IV antibiotics. Per ID, will need 2 weeks of IV vancomycin. -Repeat debridement 04/11/18 by hand surgery. Continue to monitor. Uncontrolled diabetes: - Patient started on Levemir. Continue Glucophage. Hemoglobin A1c greater than 12. - Will need insulin on discharge. Patient seen by unit educator. Discussed with case management. Patient may receive a limited supply of medication on discharge but she will need to follow-up with the [facility] in [place] [facility] for further assistance with medications. MORBID OBESITY bmi 41 - diet and increase activity recommended. Tobacco abuse: Patient has been extensively counseled. Dispo: Needs to continue IV antibiotics for 2 weeks. Progress Note: Quality VTE Deep Vein Thrombosis/Pulmonary Embolism Present on Admission: No
[2018-04-12] MEDS: Heparin - SQ 10,000 UNITS/ML Vial SQ SCH (17:18)
--- NOTE | 2018-04-12 19:37 | P.PN ---
Subjective Interval history: complains of pain no fever no numbness Physical Exam Vital signs: Vital Signs 04/11/18 20:00 04/11/18 23:40 04/12/18 03:55 Temperature 98.4 F 98 F 97.8 F Pulse Rate 76 76 76 Respiratory Rate 14 17 17 Blood Pressure 134/76 140/79 161/66 H Pulse Oximetry 93 L 97 99 04/12/18 08:00 04/12/18 12:00 04/12/18 16:00 Temperature 98.5 F 98.7 F 100.3 F H Pulse Rate 79 72 81 Respiratory Rate 18 18 18 Blood Pressure 135/64 148/79 H 159/74 H Pulse Oximetry 93 L 95 99 Intake & Output 04/12/18 04/12/18 04/13/18 06:59 18:59 06:59 Intake Total 765 / 765 960 / 960 Balance 765 / 765 960 / 960 Weight 138.6 kg Intake: IV 525 / 525 Vancomycin Inj 2,500 MG In NS 525 / 525 Inj 500 ML @ 250 mls/hr IV.SIG Q24H [facility] Rx#:[id number] Oral 240 / 240 960 / 960 Other: # Voids 3 3 # Bowel Movements 0 0 Narrative: left upper extremity: packing in place swelling and erythema noted drainage noted range of motion of fingers limited and painful Results - Labs CBC & Chem 7: 04/11/18 05:52 04/11/18 05:45 Laboratory Results - last 24 hr 04/11/18 04/12/18 04/12/18 20:09 02:01 07:22 POC Glucose 169 H 190 H 205 H 04/12/18 04/12/18 11:30 16:20 POC Glucose 205 H 211 H Microbiology 04/11/18 17:22 Wound - Hand Gram Stain - Final 04/11/18 17:22 Wound - Hand Wound Culture - Preliminary 04/11/18 17:22 Wound - Hand Fungal Smear - Final No fungal elements seen Assessment and Plan - Assessment (1) Extensor tenosynovitis of left wrist Code(s): M65.832 - Other synovitis and tenosynovitis, left forearm Status: Acute (2) Abscess of left hand Code(s): L02.512 - Cutaneous abscess of left hand Status: Acute - Plan surrounding skin is cleaned with alcohol wipes packing pulled out several cms dry dressing, abd and soft roll applied new short arm splint applied keep the part elevated finger range of motion exercises continue with IV antibiotics based on ID recommendations. hand surgery will follow.
[2018-04-12] MEDS ORDERED: Pharmacy Ordered Lab Info OTHER ONE (19:45)
[2018-04-12] MEDS: Vancomycin Inj 2,500 MG in Sodium Chlor 0.9% Inj 500 ML IV.SIG SCH (22:09)
[2018-04-13] MEDS: Insulin NovoLOG Aspart Correctional Sugar Inj SQ SCH ×5 (03:17→21:55)
[2018-04-13 05:34] LABS: Hemoglobin 10.1 gm/dL (11.6-15.3); Mean Corpuscular HGB Conc 32.8 % (32.0-36.0); Mean Corpuscular Hemoglobin 27.5 pg (27.0-34.0); Mean Corpuscular Volume 83.9 fL (80.0-100.0); Mean Platelet Volume 8.3 fL (7.0-11.0); Platelet Count 223 th/mm3 (150-450); Red Blood Count 3.69 mil/mm3 (4.00-5.30); Red Cell Distribution Width 15.3 % (11.6-17.2); White Blood Count 5.3 th/mm3 (4.0-11.0)
[2018-04-13 06:01] LABS: Calcium 8.5 mg/dL (8.5-10.1); Carbon Dioxide 28.6 meq/L (21.0-32.0); Potassium 3.7 meq/L (3.5-5.1)
[2018-04-13] MEDS: Heparin - SQ 10,000 UNITS/ML Vial SQ SCH ×2 (06:27→17:30)
[2018-04-13] MEDS: Morphine Inj 4 MG/ML Vial IV.PUSH PRN ×5 (06:28→23:23)
[2018-04-13] MEDS: Insulin Detemir Inj 1,000 UNIT/10 ML Vial SQ SCH ×2 (08:33→17:13)
[2018-04-13] MEDS: Gabapentin 100 MG Capsule PO SCH ×3 (09:00→17:13)
[2018-04-13] MEDS: Senna/Docusate Sodium 8.6/50 MG Tablet PO SCH ×2 (10:01→21:55)
[2018-04-13] MEDS: Multivitamin/Minerals Therapeutic Tablet PO SCH (10:01)
--- NOTE | 2018-04-13 11:20 | P.PNIM ---
Subjective Interval history: Patient reports she is feeling okay today. Pain is controlled. Afebrile. Physical Exam Vital signs: Vital Signs 04/12/18 12:00 04/12/18 16:00 04/12/18 20:20 Temperature 98.7 F 100.3 F H 99.1 F Pulse Rate 72 81 82 Respiratory Rate 18 18 18 Blood Pressure 148/79 H 159/74 H 145/72 H Pulse Oximetry 95 99 99 04/12/18 23:50 04/13/18 04:35 04/13/18 08:00 Temperature 98.2 F 98.3 F 98.7 F Pulse Rate 73 76 76 Respiratory Rate 18 18 18 Blood Pressure 125/65 134/75 153/87 H Pulse Oximetry 97 97 97 Intake & Output 04/12/18 04/13/18 04/13/18 18:59 06:59 18:59 Intake Total 960 / 960 1005 / 1005 Balance 960 / 960 1005 / 1005 Weight 134.4 kg Intake: IV 525 / 525 Vancomycin Inj 2,500 MG In NS 525 / 525 Inj 500 ML @ 250 mls/hr IV.SIG Q24H [facility] Rx#:[id number] Oral 960 / 960 480 / 480 Other: # Voids 3 4 Date of Last Bowel Movement 04/12/18 # Bowel Movements 0 1 Narrative: GENERAL: Obese female in no acute distress. CARDIOVASCULAR: Normal rate and regular rhythm without murmurs, gallops, or rubs. RESPIRATORY: Good respiratory efforts. Breath sounds equal and clear to auscultation bilaterally. MUSCULOSKELETAL: Left arm/hand with postsurgical dressing. Neurovascularly intact at the fingers. She is able to flex the fingers. NEURO: Alert & Oriented x4 to person, place, time, situation. Moves all ext x4 PSYCH: Appropriate mood and affect. Results Labs CBC & Chem 7: 04/13/18 04:38 04/13/18 04:38 Labs: Microbiology 04/11/18 17:22 Wound - Hand Gram Stain - Final 04/11/18 17:22 Wound - Hand Wound Culture - Preliminary Group D Enterococcus 04/11/18 17:22 Wound - Hand Fungal Smear - Final No fungal elements seen Assessment and Plan (1) Extensor tenosynovitis of left wrist: Code(s): M65.832 - Other synovitis and tenosynovitis, left forearm Status: Acute (2) Abscess of left hand: Code(s): L02.512 - Cutaneous abscess of left hand Status: Acute Plan 53-year-old female admitted with cellulitis, abscess with extensor tenosynovitis of the left hand and wrist. Cellulitis, abscess with extensor tenosynovitis of the left hand and wrist: - Status post I&D by hand surgery. - Continue IV antibiotics. Per ID, will need 2 weeks of IV vancomycin. -Status post repeat debridement 04/11/18 by hand surgery. Continue to monitor. -Keep left hand elevated. Uncontrolled diabetes: - Patient started on Levemir. Continue Glucophage. Hemoglobin A1c greater than 12. - Will need insulin on discharge. Patient seen by adaptive physical educator. Discussed with case management. Patient may receive a limited supply of medication on discharge but she will need to follow-up with the [facility] [place] for further assistance with medications. MORBID OBESITY bmi 41 - diet and increase activity recommended. Tobacco abuse: Patient has been extensively counseled. Dispo: Needs to continue IV antibiotics for 2 weeks. Progress Note: Quality VTE Deep Vein Thrombosis/Pulmonary Embolism Present on Admission: No
[2018-04-13] MEDS ORDERED: Pharmacy Ordered Lab Info OTHER ONE (19:45)
[2018-04-13] MEDS: Vancomycin Inj 2,500 MG in Sodium Chlor 0.9% Inj 500 ML IV.SIG SCH (23:20)
[2018-04-14] MEDS: Insulin NovoLOG Aspart Correctional Sugar Inj SQ SCH ×5 (03:57→20:31)
[2018-04-14] MEDS: Morphine Inj 4 MG/ML Vial IV.PUSH PRN ×5 (03:58→20:31)
[2018-04-14] MEDS: Heparin - SQ 10,000 UNITS/ML Vial SQ SCH ×2 (04:01→16:33)
[2018-04-14] MEDS: Gabapentin 100 MG Capsule PO SCH ×3 (08:19→18:15)
[2018-04-14] MEDS: Senna/Docusate Sodium 8.6/50 MG Tablet PO SCH ×2 (08:19→20:31)
[2018-04-14] MEDS: Multivitamin/Minerals Therapeutic Tablet PO SCH (08:19)
[2018-04-14] MEDS: Insulin Detemir Inj 1,000 UNIT/10 ML Vial SQ SCH ×2 (08:36→18:17)
--- NOTE | 2018-04-14 11:26 | P.PNIM ---
Subjective Interval history: Patient reports she is feeling okay today. Pain is controlled. Afebrile. Physical Exam Vital signs: Vital Signs 04/13/18 11:48 04/13/18 16:00 04/13/18 20:00 Temperature 98.1 F 98.4 F 98.6 F Pulse Rate 81 85 82 Respiratory Rate 18 18 17 Blood Pressure 155/75 H 146/70 H 155/80 H Pulse Oximetry 96 98 97 04/13/18 23:40 04/14/18 03:55 04/14/18 08:00 Temperature 99.3 F 98.6 F 98.2 F Pulse Rate 84 74 75 Respiratory Rate 18 18 18 Blood Pressure 171/84 H 140/76 163/76 H Pulse Oximetry 97 98 97 Intake & Output 04/13/18 04/14/18 04/14/18 18:59 06:59 18:59 Intake Total 960 / 960 1725 / 1725 Balance 960 / 960 1725 / 1725 Weight 135.8 kg Intake: IV 525 / 525 Vancomycin Inj 2,500 MG In NS 525 / 525 Inj 500 ML @ 250 mls/hr IV.SIG Q24H [facility] Rx#:[id number] Oral 960 / 960 1200 / 1200 Other: # Voids 3 4 Date of Last Bowel Movement 04/12/18 04/12/18 # Bowel Movements 1 0 Narrative: GENERAL: Obese female in no acute distress. CARDIOVASCULAR: Normal rate and regular rhythm without murmurs, gallops, or rubs. RESPIRATORY: Good respiratory efforts. Breath sounds equal and clear to auscultation bilaterally. MUSCULOSKELETAL: Left arm/hand with postsurgical dressing. Neurovascularly intact at the fingers. She is able to flex the fingers. NEURO: Alert & Oriented x4 to person, place, time, situation. Moves all ext x4 PSYCH: Appropriate mood and affect. Results Labs CBC & Chem 7: 04/13/18 04:38 04/13/18 04:38 Labs: Microbiology 04/11/18 17:22 Wound - Hand Gram Stain - Final 04/11/18 17:22 Wound - Hand Wound Culture - Final Enterococcus faecalis 04/11/18 17:22 Wound - Hand Acid Fast Bacilli Smear - Final No acid fast bacilli seen 04/11/18 17:22 Wound - Hand Fungal Smear - Final No fungal elements seen Assessment and Plan (1) Extensor tenosynovitis of left wrist: Code(s): M65.832 - Other synovitis and tenosynovitis, left forearm Status: Acute (2) Abscess of left hand: Code(s): L02.512 - Cutaneous abscess of left hand Status: Acute Plan 53-year-old female admitted with cellulitis, abscess with extensor tenosynovitis of the left hand and wrist. Cellulitis, abscess with extensor tenosynovitis of the left hand and wrist: - Status post I&D by hand surgery. - Continue IV antibiotics. Per ID, will need about 2 weeks of IV vancomycin. -Status post repeat debridement 04/11/18 by hand surgery. Continue to monitor. -Keep left hand elevated. Hand surgery following. Uncontrolled diabetes: - Patient started on Levemir. Continue Glucophage. Hemoglobin A1c greater than 12. - Will need insulin on discharge. Patient seen by unit educator. Discussed with case management. Patient may receive a limited supply of medication on discharge but she will need to [facility] [place] [facility] assistance with medications. Hypertension: - Given diabetes, will start lisinopril MORBID OBESITY bmi 41 - diet and increase activity recommended. Tobacco abuse: Patient has been extensively counseled. Dispo: Needs to continue IV antibiotics for about 2 weeks. Final date to be determined. Progress Note: Quality VTE Deep Vein Thrombosis/Pulmonary Embolism Present on Admission: No
[2018-04-14] MEDS: Lisinopril 5 MG Tablet PO SCH (12:15)
--- NOTE | 2018-04-14 13:37 | P.PN ---
Subjective Interval history: feeling better and moving fingers well Physical Exam Vital signs: Vital Signs 04/13/18 16:00 04/13/18 20:00 04/13/18 23:40 Temperature 98.4 F 98.6 F 99.3 F Pulse Rate 85 82 84 Respiratory Rate 18 17 18 Blood Pressure 146/70 H 155/80 H 171/84 H Pulse Oximetry 98 97 97 04/14/18 03:55 04/14/18 08:00 04/14/18 12:00 Temperature 98.6 F 98.2 F 98.4 F Pulse Rate 74 75 73 Respiratory Rate 18 18 18 Blood Pressure 140/76 163/76 H 122/65 Pulse Oximetry 98 97 95 Intake & Output 04/13/18 04/14/18 04/14/18 18:59 06:59 18:59 Intake Total 960 / 960 1725 / 1725 Balance 960 / 960 1725 / 1725 Weight 135.8 kg Intake: IV 525 / 525 Vancomycin Inj 2,500 MG In NS 525 / 525 Inj 500 ML @ 250 mls/hr IV.SIG Q24H [facility] Rx#:[id number] Oral 960 / 960 1200 / 1200 Other: # Voids 3 4 Date of Last Bowel Movement 04/12/18 04/12/18 # Bowel Movements 1 0 - Detailed Upper Extremity Exam Wrist: Left swelling (most proximal portion of the wound almost sealed; most distal portion with 2-3 mls of bloody pus expressible, but moving fingers alot better. Left middle finger with slight extension lag. Tenderness alot better; no erythema) Results - Labs CBC & Chem 7: 04/13/18 04:38 04/13/18 04:38 Laboratory Results - last 24 hr 04/13/18 04/13/18 04/13/18 16:49 20:06 21:14 POC Glucose 218 H 184 H Vancomycin Trough 17.6 H 04/14/18 04/14/18 04/14/18 03:51 08:19 12:20 POC Glucose 178 H 170 H 170 H Vancomycin Trough Microbiology 04/11/18 17:22 Wound - Hand Gram Stain - Final 04/11/18 17:22 Wound - Hand Wound Culture - Final Enterococcus faecalis 04/11/18 17:22 Wound - Hand Acid Fast Bacilli Smear - Final No acid fast bacilli seen 04/11/18 17:22 Wound - Hand Fungal Smear - Final No fungal elements seen Assessment and Plan - Assessment (1) Extensor tenosynovitis of left wrist Code(s): M65.832 - Other synovitis and tenosynovitis, left forearm Status: Acute Plan: wound cleaned with peroxide and NS and packing removed and each open area (3) repacked with 1/2" iodoform gauze and sterile 4x4s, kandi, kerlix, ABD and short arm fiberglass splint, Hernan wrap applied left wrist and forearm elevate and encourage AROM of fingers and discussed with Dr. Royal and he will see again on 04/16 and change dressing/splint. Continue IV antibiotics (vancomycin) per ID (2) Abscess of left hand Code(s): L02.512 - Cutaneous abscess of left hand Status: Acute
[2018-04-15] MEDS: Morphine Inj 4 MG/ML Vial IV.PUSH PRN ×5 (00:29→21:12)
[2018-04-15] MEDS: Insulin NovoLOG Aspart Correctional Sugar Inj SQ SCH ×5 (03:26→20:42)
[2018-04-15] MEDS: Heparin - SQ 10,000 UNITS/ML Vial SQ SCH ×2 (04:36→17:19)
[2018-04-15] MEDS: Vancomycin Inj 2,000 MG in Sodium Chlor 0.9% Inj 500 ML IV.SIG SCH (06:33)
[2018-04-15] MEDS: Insulin Detemir Inj 1,000 UNIT/10 ML Vial SQ SCH ×2 (07:55→17:24)
[2018-04-15] MEDS: Senna/Docusate Sodium 8.6/50 MG Tablet PO SCH ×2 (07:59→20:40)
[2018-04-15] MEDS: Lisinopril 5 MG Tablet PO SCH (07:59)
[2018-04-15] MEDS: Multivitamin/Minerals Therapeutic Tablet PO SCH (07:59)
[2018-04-15] MEDS: Gabapentin 100 MG Capsule PO SCH ×3 (07:59→17:19)
--- NOTE | 2018-04-15 14:07 | P.PNIM ---
Subjective Interval history: Patient reports pain is currently not well controlled. Especially after dressing changes. She is requesting increase in her pain medications. Physical Exam Vital signs: Vital Signs 04/14/18 16:00 04/14/18 19:20 04/14/18 23:55 Temperature 97.9 F 97.7 F 98.7 F Pulse Rate 70 79 79 Respiratory Rate 18 20 18 Blood Pressure 167/87 H 148/78 H 140/63 Pulse Oximetry 98 98 97 04/15/18 03:00 04/15/18 08:00 04/15/18 12:00 Temperature 98.0 F 98.5 F 98 F Pulse Rate 80 76 82 Respiratory Rate 18 20 20 Blood Pressure 139/74 106/54 L 147/97 H Pulse Oximetry 97 95 98 Intake & Output 04/14/18 04/15/18 04/15/18 18:59 06:59 18:59 Intake Total 960 / 960 600 / 600 520 / 520 Balance 960 / 960 600 / 600 520 / 520 Weight 135.8 kg Intake: IV 520 / 520 Vancomycin Inj 2,000 MG In NS 520 / 520 Inj 500 ML @ 250 mls/hr IV.SIG Q24H [facility] Rx#:[id number] Oral 960 / 960 600 / 600 Other: # Voids 3 3 Date of Last Bowel Movement 04/12/18 04/12/18 # Bowel Movements 1 Narrative: GENERAL: Obese female in no acute distress. CARDIOVASCULAR: Normal rate and regular rhythm without murmurs, gallops, or rubs. RESPIRATORY: Good respiratory efforts. Breath sounds equal and clear to auscultation bilaterally. MUSCULOSKELETAL: Left arm/hand with postsurgical dressing. Neurovascularly intact at the fingers. She is able to flex the fingers. NEURO: Alert & Oriented x4 to person, place, time, situation. Moves all ext x4 PSYCH: Appropriate mood and affect. Results Labs CBC & Chem 7: 04/13/18 04:38 04/13/18 04:38 Labs: Microbiology 04/06/18 20:20 Wound - Hand Fungal Smear - Final No fungal elements seen 04/06/18 20:20 Wound - Hand Fungal Culture - Preliminary No growth in 1 week 04/06/18 20:20 Wound - Hand Acid Fast Bacilli Smear - Final No acid fast bacilli seen 04/06/18 20:20 Wound - Hand Mycobacterial Culture - Preliminary No growth in 1 week Assessment and Plan (1) Extensor tenosynovitis of left wrist: Code(s): M65.832 - Other synovitis and tenosynovitis, left forearm Status: Acute (2) Abscess of left hand: Code(s): L02.512 - Cutaneous abscess of left hand Status: Acute Plan 53-year-old female admitted with cellulitis, abscess with extensor tenosynovitis of the left hand and wrist. Cellulitis, abscess with extensor tenosynovitis of the left hand and wrist: - Status post I&D by hand surgery. - Continue IV antibiotics. Per ID, will need about 2 weeks of IV vancomycin. -Status post repeat debridement 04/11/18 by hand surgery. Continue to monitor. -Keep left hand elevated. Hand surgery following. -Adjust pain meds. Change [place] to Percocet. Continue to monitor Uncontrolled diabetes: - Patient started on Levemir. Continue Glucophage. Hemoglobin A1c greater than 12. - Will need insulin on discharge. Patient seen by clinical trial educator. Discussed with case management. Patient may receive a limited supply of medication on discharge but she will need to follow-up with the [facility] [place] for further assistance with medications. Hypertension: - Given diabetes, patient started on lisinopril MORBID OBESITY bmi 41 - diet and increase activity recommended. Tobacco abuse: Patient has been extensively counseled. Dispo: Needs to continue IV antibiotics for about 2 weeks. Final date to be determined. Progress Note: Quality VTE Deep Vein Thrombosis/Pulmonary Embolism Present on Admission: No
[2018-04-16] MEDS: Morphine Inj 4 MG/ML Vial IV.PUSH PRN ×5 (01:25→17:42)
[2018-04-16] MEDS: Insulin NovoLOG Aspart Correctional Sugar Inj SQ SCH ×5 (02:39→21:50)
[2018-04-16] MEDS: Heparin - SQ 10,000 UNITS/ML Vial SQ SCH ×2 (05:15→17:41)
[2018-04-16] MEDS: Vancomycin Inj 2,000 MG in Sodium Chlor 0.9% Inj 500 ML IV.SIG SCH (05:15)
[2018-04-16] MEDS: Lisinopril 5 MG Tablet PO SCH (08:17)
[2018-04-16] MEDS: Gabapentin 100 MG Capsule PO SCH ×3 (08:17→17:43)
[2018-04-16] MEDS: Senna/Docusate Sodium 8.6/50 MG Tablet PO SCH ×2 (08:17→21:49)
[2018-04-16] MEDS: Multivitamin/Minerals Therapeutic Tablet PO SCH (08:17)
[2018-04-16] MEDS: Insulin Detemir Inj 1,000 UNIT/10 ML Vial SQ SCH ×2 (08:18→18:12)
--- NOTE | 2018-04-16 13:03 | P.PNID ---
Subjective Remarks: Patient reports pain in the left hand. No other complaints. Afebrile. He has a surgical dressing on the left hand. Enterococcus in the wound sensitive to ampicillin. She tells me that she has tolerated amoxicillin. 53-year-old white female who developed an infection of the left hand at the dorsal aspect. The patient states that she was working around her yard and she thinks she may have had a thorn injury or insect bite at the hand. She developed swelling at the dorsum of the hand and she poked it herself and got a little bit of fluid. Her hand subsequently became swollen up and the swelling extended to her fingers and was also proceeding to climb up her forearm. Antibiotics: Vancomycin started 04/05/2018. Past Medical History: PAST MEDICAL HISTORY: Cholecystectomy, tonsillectomy, prediabetes. Allergies/Adverse Reactions: Allergies diclofenac Allergy (Severe, Verified 04/05/18 22:46) ITCHING diflunisal Allergy (Severe, Verified 04/05/18 22:46) ITCHING misoprostol Allergy (Severe, Verified 04/05/18 22:46) ITCHING penicillin G Allergy (Severe, Verified 04/05/18 22:46) HIVES/ITCHING penicillin V Allergy (Severe, Verified 04/05/18 22:46) ITCHING propoxyphene Allergy (Severe, Verified 04/05/18 22:46) PURITIS Sulfa (Sulfonamide Antibiotics) Allergy (Severe, Verified 04/05/18 22:46) Anaphylaxis sulfamethoxazole Allergy (Severe, Verified 04/05/18 22:46) ITCHING, HIVES trimethoprim Allergy (Severe, Verified 04/05/18 22:46) ITCHING, HIVES Objective Vital Signs 04/15/18 16:00 04/15/18 19:20 04/15/18 23:20 Temperature 98.2 F 98.3 F 98 F Pulse Rate 76 77 85 Respiratory Rate 20 18 18 Blood Pressure 159/63 H 137/75 141/78 H Pulse Oximetry 98 97 99 04/16/18 03:20 04/16/18 08:00 04/16/18 12:00 Temperature 98.3 F 98.1 F 98.3 F Pulse Rate 74 72 72 Respiratory Rate 18 18 18 Blood Pressure 115/56 L 119/55 L 116/57 L Pulse Oximetry 94 L 97 97 Intake & Output 04/15/18 04/16/18 04/16/18 18:59 06:59 18:59 Intake Total 1080 / 1080 720 / 720 520 / 520 Balance 1080 / 1080 720 / 720 520 / 520 Weight 135.8 kg Intake: IV 520 / 520 520 / 520 Vancomycin Inj 2,000 MG In NS 520 / 520 520 / 520 Inj 500 ML @ 250 mls/hr IV.SIG Q24H [facility] Rx#:[id number] Oral 560 / 560 720 / 720 Other: # Voids 4 4 Date of Last Bowel Movement 04/12/18 04/12/18 # Bowel Movements 2 04/06/18 20:20 Wound - Hand Fungal Smear - Final No fungal elements seen 04/06/18 20:20 Wound - Hand Fungal Culture - Preliminary No growth in 1 week 04/06/18 20:20 Wound - Hand Acid Fast Bacilli Smear - Final No acid fast bacilli seen 04/06/18 20:20 Wound - Hand Mycobacterial Culture - Preliminary No growth in 1 week 04/11/18 17:22 Wound - Hand Gram Stain - Final 04/11/18 17:22 Wound - Hand Wound Culture - Final Enterococcus faecalis 04/11/18 17:22 Wound - Hand Acid Fast Bacilli Smear - Final No acid fast bacilli seen 04/11/18 17:22 Wound - Hand Mycobacterial Culture - Pending 04/11/18 17:22 Wound - Hand Fungal Smear - Final No fungal elements seen 04/11/18 17:22 Wound - Hand Fungal Culture - Pending Lab - Chemistry Results 04/14/18 04/14/18 04/15/18 18:17 20:05 03:21 POC Glucose 181 H 223 H 183 H 04/15/18 04/15/18 04/15/18 07:14 12:15 17:22 POC Glucose 180 H 144 H 150 H 04/15/18 04/16/18 04/16/18 20:40 02:33 07:53 POC Glucose 205 H 265 H 112 H 04/16/18 12:00 POC Glucose 161 H Imaging: ITS Impressions Chest X-Ray 04/06/18 00:01 CONCLUSION: No acute disease Hand X-Ray 04/06/18 00:01 CONCLUSION: No acute bony findings Physical Exam: PHYSICAL EXAMINATION: GENERAL: Patient in no acute distress. Awake and alert. HEENT: Extraocular movements grossly intact. Pupils reactive to light. No icterus. Oropharynx with moist mucosa. No visible lesions. NECK: Supple without adenopathy. LUNGS: Clear breath sounds. HEART: Regular S1 and S2 without murmurs. EXTREMITIES: No clubbing or cyanosis. The left upper extremity has surgical dressing securing the hand wound. No visible erythema. Sensation of the fingers is intact. SKIN: No diffuse rash. NEUROLOGIC: Nonfocal. PSYCHIATRIC: Calm and cooperative. Assessment and Plan - Plan IMPRESSION: Abscess of the left hand in addition to tenosynovitis, status post incision and debridement and tenosynovectomy. Enterococcus faecalis. RECOMMENDATIONS: -Plan on giving IV vancomycin until 04/18/2018. If she tolerates amoxicillin I will give her a trial of amoxicillin since she said she has tolerated that antibiotic without difficulty despite the report of penicillin allergy. If she is tolerating amoxicillin she can be discharged with a 2-week course of the oral amoxicillin on 04/18.
--- NOTE | 2018-04-16 13:15 | P.PNIM ---
Subjective Interval history: Patient reports she is feeling okay today. Pain is better controlled. No fevers. Physical Exam Vital signs: Vital Signs 04/15/18 16:00 04/15/18 19:20 04/15/18 23:20 Temperature 98.2 F 98.3 F 98 F Pulse Rate 76 77 85 Respiratory Rate 20 18 18 Blood Pressure 159/63 H 137/75 141/78 H Pulse Oximetry 98 97 99 04/16/18 03:20 04/16/18 08:00 04/16/18 12:00 Temperature 98.3 F 98.1 F 98.3 F Pulse Rate 74 72 72 Respiratory Rate 18 18 18 Blood Pressure 115/56 L 119/55 L 116/57 L Pulse Oximetry 94 L 97 97 Intake & Output 04/15/18 04/16/18 04/16/18 18:59 06:59 18:59 Intake Total 1080 / 1080 720 / 720 520 / 520 Balance 1080 / 1080 720 / 720 520 / 520 Weight 135.8 kg Intake: IV 520 / 520 520 / 520 Vancomycin Inj 2,000 MG In NS 520 / 520 520 / 520 Inj 500 ML @ 250 mls/hr IV.SIG Q24H [facility] Rx#:[id number] Oral 560 / 560 720 / 720 Other: # Voids 4 4 Date of Last Bowel Movement 04/12/18 04/12/18 # Bowel Movements 2 Narrative: GENERAL: Obese female in no acute distress. CARDIOVASCULAR: Normal rate and regular rhythm without murmurs, gallops, or rubs. RESPIRATORY: Good respiratory efforts. Breath sounds equal and clear to auscultation bilaterally. MUSCULOSKELETAL: Left arm/hand with postsurgical dressing. Neurovascularly intact at the fingers. She is able to flex the fingers. NEURO: Alert & Oriented x4 to person, place, time, situation. Moves all ext x4 PSYCH: Appropriate mood and affect. Results Labs CBC & Chem 7: 04/13/18 04:38 04/13/18 04:38 Assessment and Plan (1) Extensor tenosynovitis of left wrist: Code(s): M65.832 - Other synovitis and tenosynovitis, left forearm Status: Acute (2) Abscess of left hand: Code(s): L02.512 - Cutaneous abscess of left hand Status: Acute Plan 53-year-old female admitted with cellulitis, abscess with extensor tenosynovitis of the left hand and wrist. Cellulitis, abscess with extensor tenosynovitis of the left hand and wrist: - Status post I&D by hand surgery. -Status post repeat debridement 04/11/18 by hand surgery. Continue to monitor. -Keep left hand elevated. Hand surgery following. -Adjust pain meds. Change Floral to Percocet. Continue to monitor -Discussed with infectious disease. Plan to continue IV vancomycin until . Patient started on amoxicillin. If she tolerates amoxicillin, she can be discharged on 04/18 on amoxicillin per ID recommendations. - Further input from hand surgery is appreciated regarding timing of discharge and needed follow-up. Uncontrolled diabetes: - Patient started on Levemir. Continue Glucophage. Hemoglobin A1c greater than 12. - Will need insulin on discharge. Patient seen by tobacco prevention health educator. Discussed with case management. Patient may receive a limited supply of medication on discharge but she will need to follow-up with the [facility] in [place] for further assistance with medications. Hypertension: - Given diabetes, patient started on lisinopril MORBID OBESITY bmi 41 - diet and increase activity recommended. Tobacco abuse: Patient has been extensively counseled. Dispo: Possible discharge on 04/18/18. Progress Note: Quality VTE Deep Vein Thrombosis/Pulmonary Embolism Present on Admission: No
[2018-04-16] MEDS: Amoxicillin 250 MG Capsule PO SCH (17:42)
[2018-04-17] MEDS: Insulin NovoLOG Aspart Correctional Sugar Inj SQ SCH ×5 (02:15→21:21)
[2018-04-17] MEDS: Heparin - SQ 10,000 UNITS/ML Vial SQ SCH ×2 (05:56→18:26)
[2018-04-17] MEDS: Vancomycin Inj 2,000 MG in Sodium Chlor 0.9% Inj 500 ML IV.SIG SCH (05:57)
[2018-04-17] MEDS: Gabapentin 100 MG Capsule PO SCH ×3 (09:48→18:27)
[2018-04-17] MEDS: Senna/Docusate Sodium 8.6/50 MG Tablet PO SCH ×2 (09:48→21:22)
[2018-04-17] MEDS: Lisinopril 5 MG Tablet PO SCH (09:48)
[2018-04-17] MEDS: Amoxicillin 250 MG Capsule PO SCH ×3 (09:48→18:27)
[2018-04-17] MEDS: Multivitamin/Minerals Therapeutic Tablet PO SCH (09:49)
[2018-04-17] MEDS: Insulin Detemir Inj 1,000 UNIT/10 ML Vial SQ SCH ×2 (09:49→18:28)
[2018-04-17] MEDS: Morphine Inj 4 MG/ML Vial IV.PUSH PRN ×2 (14:33→18:34)
--- NOTE | 2018-04-17 15:30 | P.PNID ---
Subjective Remarks: Patient without any new complaints. No fever. He has a surgical dressing on the left hand. Enterococcus in the wound sensitive to ampicillin. She is tolerating oral amoxicillin. 53-year-old white female who developed an infection of the left hand at the dorsal aspect. The patient states that she was working around her yard and she thinks she may have had a thorn injury or insect bite at the hand. She developed swelling at the dorsum of the hand and she poked it herself and got a little bit of fluid. Her hand subsequently became swollen up and the swelling extended to her fingers and was also proceeding to climb up her forearm. Antibiotics: Vancomycin started 04/05/2018. Past Medical History: PAST MEDICAL HISTORY: Cholecystectomy, tonsillectomy, prediabetes. Allergies/Adverse Reactions: Allergies diclofenac Allergy (Severe, Verified 04/05/18 22:46) ITCHING diflunisal Allergy (Severe, Verified 04/05/18 22:46) ITCHING misoprostol Allergy (Severe, Verified 04/05/18 22:46) ITCHING penicillin G Allergy (Severe, Verified 04/05/18 22:46) HIVES/ITCHING penicillin V Allergy (Severe, Verified 04/05/18 22:46) ITCHING propoxyphene Allergy (Severe, Verified 04/05/18 22:46) PURITIS Sulfa (Sulfonamide Antibiotics) Allergy (Severe, Verified 04/05/18 22:46) Anaphylaxis sulfamethoxazole Allergy (Severe, Verified 04/05/18 22:46) ITCHING, HIVES trimethoprim Allergy (Severe, Verified 04/05/18 22:46) ITCHING, HIVES Objective Vital Signs 04/16/18 16:00 04/16/18 20:00 04/17/18 00:00 Temperature 97.9 F 98.4 F 98.4 F Pulse Rate 76 73 73 Respiratory Rate 18 18 18 Blood Pressure 138/86 150/80 H 139/59 L Pulse Oximetry 96 98 99 04/17/18 04:00 04/17/18 08:00 04/17/18 10:30 Temperature 97.7 F 97.7 F Pulse Rate 71 63 Respiratory Rate 18 18 18 Blood Pressure 109/55 L 101/53 L Pulse Oximetry 95 97 04/17/18 12:00 Temperature 97.9 F Pulse Rate 69 Respiratory Rate 16 Blood Pressure 136/72 Pulse Oximetry 96 Intake & Output 02/25/19 02/26/19 02/26/19 18:59 06:59 18:59 Intake Total 1480 / 1480 620 / 620 520 / 520 Balance 1480 / 1480 620 / 620 520 / 520 Weight 135.8 kg Intake: IV 520 / 520 520 / 520 Vancomycin Inj 2,000 MG In NS 520 / 520 520 / 520 Inj 500 ML @ 250 mls/hr IV.SIG Q24H [facility] Rx#:[id number] Oral 960 / 960 620 / 620 Other: # Voids 4 2 Date of Last Bowel Movement 04/12/18 04/12/18 # Bowel Movements 1 04/06/18 20:20 Wound - Hand Fungal Smear - Final No fungal elements seen 04/06/18 20:20 Wound - Hand Fungal Culture - Preliminary No growth in 1 week 04/06/18 20:20 Wound - Hand Acid Fast Bacilli Smear - Final No acid fast bacilli seen 04/06/18 20:20 Wound - Hand Mycobacterial Culture - Preliminary No growth in 1 week Lab - Chemistry Results 04/15/18 04/15/18 04/16/18 17:22 20:40 02:33 POC Glucose 150 H 205 H 265 H 04/16/18 04/16/18 04/16/18 07:53 12:00 17:45 POC Glucose 112 H 161 H 139 H 04/16/18 04/17/18 04/17/18 20:16 02:15 07:15 POC Glucose 250 H 140 H 159 H 04/17/18 11:24 POC Glucose 188 H Imaging: ITS Impressions Chest X-Ray 04/06/18 00:01 CONCLUSION: No acute disease Hand X-Ray 04/06/18 00:01 CONCLUSION: No acute bony findings Physical Exam: PHYSICAL EXAMINATION: GENERAL: Patient in no acute distress. Awake and alert. HEENT: Extraocular movements grossly intact. Pupils reactive to light. No icterus. Oropharynx with moist mucosa. No visible lesions. NECK: Supple without adenopathy. LUNGS: Clear breath sounds. HEART: Regular S1 and S2 without murmurs. EXTREMITIES: No clubbing or cyanosis. The left upper extremity has surgical dressing securing the hand wound. No visible erythema. Sensation of the fingers is intact. Dressing changes per hand surgeon. SKIN: No diffuse rash. NEUROLOGIC: Nonfocal. PSYCHIATRIC: Calm and cooperative. Assessment and Plan - Plan IMPRESSION: Abscess of the left hand in addition to tenosynovitis, status post incision and debridement and tenosynovectomy. Enterococcus faecalis. Patient is tolerating amoxicillin p.o. The wound dressing changes are being performed by the hand surgeon. RECOMMENDATIONS: Okay to discharge tomorrow 04/18/2018 on p.o. amoxicillin 500 mg 3 times daily for 14 days. Patient to follow-up with a hand surgeon.
--- NOTE | 2018-04-17 16:17 | P.PNIM ---
Subjective Interval history: Patient reports she is feeling okay today. Eager to go home tomorrow. Pain is controlled. Physical Exam Vital signs: Vital Signs 04/16/18 20:00 04/17/18 00:00 04/17/18 04:00 Temperature 98.4 F 98.4 F 97.7 F Pulse Rate 73 73 71 Respiratory Rate 18 18 18 Blood Pressure 150/80 H 139/59 L 109/55 L Pulse Oximetry 98 99 95 04/17/18 08:00 04/17/18 10:30 04/17/18 12:00 Temperature 97.7 F 97.9 F Pulse Rate 63 69 Respiratory Rate 18 18 16 Blood Pressure 101/53 L 136/72 Pulse Oximetry 97 96 Intake & Output 04/16/18 04/17/18 04/17/18 18:59 06:59 18:59 Intake Total 1480 / 1480 620 / 620 520 / 520 Balance 1480 / 1480 620 / 620 520 / 520 Weight 135.8 kg Intake: IV 520 / 520 520 / 520 Vancomycin Inj 2,000 MG In NS 520 / 520 520 / 520 Inj 500 ML @ 250 mls/hr IV.SIG Q24H [facility] Rx#:[id number] Oral 960 / 960 620 / 620 Other: # Voids 4 2 Date of Last Bowel Movement 04/12/18 04/12/18 # Bowel Movements 1 Narrative: GENERAL: Obese female in no acute distress. CARDIOVASCULAR: Normal rate and regular rhythm without murmurs, gallops, or rubs. RESPIRATORY: Good respiratory efforts. Breath sounds equal and clear to auscultation bilaterally. MUSCULOSKELETAL: Left arm/hand with postsurgical dressing. Neurovascularly intact at the fingers. She is able to flex the fingers. NEURO: Alert & Oriented x4 to person, place, time, situation. Moves all ext x4 PSYCH: Appropriate mood and affect. Results Labs CBC & Chem 7: 04/13/18 04:38 04/13/18 04:38 Assessment and Plan (1) Extensor tenosynovitis of left wrist: Code(s): M65.832 - Other synovitis and tenosynovitis, left forearm Status: Acute (2) Abscess of left hand: Code(s): L02.512 - Cutaneous abscess of left hand Status: Acute Plan 53-year-old female admitted with cellulitis, abscess with extensor tenosynovitis of the left hand and wrist. Cellulitis, abscess with extensor tenosynovitis of the left hand and wrist: - Status post I&D by hand surgery. -Status post repeat debridement 04/11/18 by hand surgery. Continue to monitor. -Keep left hand elevated. Hand surgery following. -Adjust pain meds. Change [place] to Percocet. Continue to monitor -Discussed with infectious disease. Plan to continue IV vancomycin until . Patient started on amoxicillin. she can be discharged on 04/18 on amoxicillin per ID recommendations. -Plan to discharge home tomorrow. Will need follow-up with hand surgery. Uncontrolled diabetes: - Patient started on Levemir. Continue Glucophage. Hemoglobin A1c greater than 12. - Will need insulin on discharge. Patient seen by cosmetology educator. Discussed with case management. Patient may receive a limited supply of medication on discharge but she will need to [facility] [place] for [place] with medications. Hypertension: - Given diabetes, patient started on lisinopril MORBID OBESITY bmi 41 - diet and increase activity recommended. Tobacco abuse: Patient has been extensively counseled. Dispo: Plan to discharge on 04/18/18. Progress Note: Quality VTE Deep Vein Thrombosis/Pulmonary Embolism Present on Admission: No
[2018-04-18] MEDS: Insulin NovoLOG Aspart Correctional Sugar Inj SQ SCH (03:28)
[2018-04-18] MEDS: Heparin - SQ 10,000 UNITS/ML Vial SQ SCH (05:27)
[2018-04-18] MEDS: Vancomycin Inj 2,000 MG in Sodium Chlor 0.9% Inj 500 ML IV.SIG SCH (05:33)
[2018-04-18] MEDS ORDERED: Pharmacy Ordered Lab Info OTHER ONE (05:45)
[2018-04-18 06:44] LABS: Vancomycin,Trough 15.2 mcg/mL (5.0-10.0)
--- NOTE | 2018-04-18 07:49 | P.DS ---
DS: Providers Date of admission: 04/06/18 08:01 Primary care physician: UNKNOWN Consults: 04/06/18 01:50 Consult to Hand Surgery Routine Consulting Provider: Carlos Royal Reason for Consultation: Hand abscess, concern for tenosynovitis Notified:: Service Spoke with:: alessandra Date Notified:: 04/06/18 Time Notified:: 03:56 Ordering Provider: TIFFANY 04/08/18 17:05 Consult to Infectious Diseases Routine Consulting Provider: Alexys Waddell Reason for Consultation: abscess/tenosynovitis Notified:: Service Spoke with:: ANA Date Notified:: 04/08/18 Time Notified:: 17:29 Ordering Provider: KANCHAN Brief History from admission: HPI on admission as documented by the admitting physician: 53-year-old female with past medical history significant for diabetes mellitus presents to the emergency department for the evaluation of an abscess on the dorsum of her hand. The patient reports she first started noticing a raised bump on her hand yesterday afternoon. She states that she attempted to dereck the area and was able to express a small amount of pus. The erythema and pain worsened and she is now unable to extend the fingers of her left hand. She denies any fever/chills at home. No chest pain or shortness of breath. No abdominal pain. No nausea/vomiting/diarrhea. No focal neurologic deficits. Patient update on day of discharge: Patient reports she is feeling good today. Eager to go home. No fevers or chills. We discussed discharge planning at length and the need to follow-up outpatient with PCP and hand surgery. DS: Diagnosis Discharge Diagnosis (1) Extensor tenosynovitis of left wrist: Status: Acute (2) Abscess of left hand: Status: Acute DS: Summary 53-year-old female admitted with cellulitis, abscess with extensor tenosynovitis of the left hand and wrist. Evaluation and treatment course detailed below: Cellulitis, abscess with extensor tenosynovitis of the left hand and wrist: - Status post I&D by hand surgery. -Status post repeat debridement 04/11/18 by hand surgery. Patient followed by hand surgery and infectious disease. Culture grew enterococcus. She was treated with IV vancomycin until 04/18/18. Patient started on amoxicillin and will continue treatment on amoxicillin for 2 weeks per infectious disease recommendation. -Patient to follow-up with hand surgery in clinic. Uncontrolled diabetes: - Patient started on Levemir. Continue Glucophage. Hemoglobin A1c greater than 12. She was started on insulin and given supplies on discharge. She is to follow-up outpatient with PCP. She was advised that she needed better control of diabetes. She voiced understanding and states she will follow-up closely. Hypertension: - Given diabetes, patient started on lisinopril MORBID OBESITY bmi 41 -recommend diet and increase activity. Tobacco abuse: Patient has been extensively counseled. Patient is discharged home on antibiotics as noted below. She is to follow-up outpatient with PCP and hand surgery. I discussed discharge planning with infectious disease and hand surgery. Time Spent with Patient Total time spent providing and/or coordinating discharge services: Quality: VTE Deep Vein Thrombosis/Pulmonary Embolism Present on Admission: No Exam Narrative Exam Narrative: GENERAL: Obese female in no acute distress. CARDIOVASCULAR: Normal rate and regular rhythm without murmurs, gallops, or rubs. RESPIRATORY: Good respiratory efforts. Breath sounds equal and clear to auscultation bilaterally. MUSCULOSKELETAL: Left arm/hand with postsurgical dressing. Neurovascularly intact at the fingers. She is able to flex the fingers. NEURO: Alert & Oriented x4 to person, place, time, situation. Moves all ext x4 PSYCH: Appropriate mood and affect. Results Labs on day of discharge: Labs from last 24 hours 04/18/18 04/18/18 04/17/18 05:30 03:27 20:36 Creatinine 1.18 H Estimated GFR 48 L POC Glucose 160 H 283 H Vancomycin Trough 15.2 H 04/17/18 04/17/18 16:39 11:24 Creatinine Estimated GFR POC Glucose 180 H 188 H Vancomycin Trough Preliminary micro results at discharge 04/06/18 20:20 Fungal Culture - Preliminary Wound - Hand No growth in 1 week 04/06/18 20:20 Mycobacterial Culture - Preliminary Wound - Hand No growth in 1 week Impressions ITS Impressions Chest X-Ray 04/06/18 00:01 CONCLUSION: No acute disease Hand X-Ray 04/06/18 00:01 CONCLUSION: No acute bony findings Discharge Plan Discharge Disposition Patient Disposition: 01 Discharge Home Discharge Condition Condition: Good Discharge Order Discharge Orders: Discharge Order (Routine); Ordered 04/18/18 Ordered By: Joleen Davis Physicians Team Primary Care Provider: UNKNOWN, Attending Provider: Joleen Davis Other Providers: Carlos Royal ; Alexys Waddell Rxs /Orders / Referrals /Forms Prescriptions: New amoxicillin 250 mg Capsule 250 mg PO TID 14 Days Qty: 42 RF: 0 lisinopril 5 mg Tablet 5 mg PO DAILY Qty: 30 RF: 0 gabapentin 100 mg Capsule 200 mg PO TID 30 Days Qty: 180 RF: 0 oxycodone-acetaminophen 7.5-325 mg Tablet 1 tab PO Q4H PRN (Reason: Pain Scale 6 To 10) Qty: 15 RF: 0 insulin detemir U-100 [Levemir U-100 Insulin] 100 unit/mL Solution 12 unit subcut BIDAC 30 Days RF: 0 lancets Misc Qty: 100 RF: 0 insulin syr/ndl U100 half jose 0.3 mL 29 gauge x 1/2" Syringe Qty: 100 RF: 0 Continue metformin 500 mg Tablet 500 mg PO BID RF: 0 Referrals: UNKNOWN, [Primary Care Provider] - See Instructions (CALL FOR AN APPOINTMENT WITH [facility] [phone] (NEED MEDICAL RECORD INFORMATION) ) Discharge Instructions Patient Printed Instructions: Lisinopril (By mouth), Oxycodone/Acetaminophen ( By mouth), Amoxicillin/Clavulanate Potassium (By mouth), Gabapentin (By mouth), Insulin Detemir (By injection) Additional Instructions: [facility] ([phone]) [facility] ([phone]) [facility] ([phone]) [facility] ([phone]) Post Discharge Care Plan Care Plan Goals: Your Health Problems: abcess Goals to Promote Your Health: * To prevent worsening of your condition * To maintain your health at the optimal level Directions to Meet Your Goals: * Take your medications as prescribed * Follow your dietary instruction * Follow activity as directed * Keep your appointments as scheduled * Take your immunizations and boosters as scheduled * If your symptoms worsen call your PCP * If no PCP go to Urgent Care or Emergency Room Smoking is dangerous to your health. Avoid second hand smoke. You may reach the 24-hour crisis hotline for domestic abuse at . Status ED Status: Left Department Discharge Information Discharge Date/Time: 04/18/18 09:40
[2018-04-18] MEDS: Multivitamin/Minerals Therapeutic Tablet PO SCH (09:28)
[2018-04-18] MEDS: Gabapentin 100 MG Capsule PO SCH (09:28)
[2018-04-18] MEDS: Senna/Docusate Sodium 8.6/50 MG Tablet PO SCH (09:28)
[2018-04-18] MEDS: Amoxicillin 250 MG Capsule PO SCH (09:28)
[2018-04-18] MEDS: Lisinopril 5 MG Tablet PO SCH (09:28)
== END 2018-04-18 09:40 | disposition home or self-care (01) | DRG 982 ==
LOC: NEPE 22:20 → NEDH 04-06 01:31 → INTOOBSV 04-06 01:31 → NEPHCDU 04-06 03:00 → N04 04-06 21:59
PROVIDERS: ADMIT Family Medicine; ATTEND Family Medicine
CPT/HCPCS: 10060; 71020; 71046; 73130; 76937; 80048; 80053; 80202; 81001; 82565; 82948; 82962; 83036; 83605; 83735; 85025; 85027; 87015; 87040; 87070; 87077; 87086; 87102; 87116; 87186; 87205; 87206; 90471; 90715; 90765; 90775; 96365; 96375; 97110; 97167; 97535; 99285; J0131; J0330; J0690; J1100; J1644; J1815; J1885; J2250; J2270; J2370; J2405; J2704; J3010; J3370; J7030; J7040; J7050; J7120